=== PATIENT | male | born 1935 | race Caucasian/White ===

== ENCOUNTER 2017-10-03 11:30 | Inpatient (IN) | payer MEDICARE, BC ==
[~2017-10-03] VITALS: Ht 172.7 cm; Wt 85.4 kg
[2017-10-03] VITALS (32 sets, daily range): BP systolic 96–260; BP diastolic 55–120; PULSE 52–80; RESP 12–23; TEMP 97.8–99; O2SAT 93–100
--- NOTE | 2017-10-03 11:45 | PD ---
HPI Chief Complaint: stroke alert Time Seen by Provider: 11:35 Travel History International Travel<30 days: No Contact w/Intl Traveler<30days: No Traveled to known affect area: No History of Present Illness HPI 82-year-old male patient with history of hypertension, end-stage renal disease on dialysis last dialyzed on Saturday, presents to the ER today brought in by EMS , apparently was last seen normal about an hour prior to arrival, about at 10:15 , and notes that the patient started having difficulty talking, is having left-sided weakness in arms and legs. Patient is having difficulty giving me further history. Staring to the left. Had complained of nausea, given Zofran by EMS. Stroke alert was called in the field. Blood sugars 133. Modifying Factors: None Associated Signs & Symptoms: Stroke alert, left-sided weakness, difficulty speaking Risk Factors: Elderly, on dialysis [facility] Social History Tobacco Use: No Allergies-Medications (Allergen,Severity, Reaction): Coded Allergies: No Known Allergies (Unverified , 10/03/17) Review of Systems ROS Limitations: Altered Mental Status, Speech Impaired Physical Exam Narrative GENERAL: Well-developed elderly white male patient currently in moderate distress. Awake, mildly disoriented. SKIN: Focused skin assessment warm/dry. HEAD: Atraumatic. Normocephalic. EYES: Pupils equal and round. No scleral icterus. No injection or drainage. ENT: No nasal bleeding or discharge. Mucous membranes pink and moist. NECK: Trachea midline. No JVD. CARDIOVASCULAR: Regular rate and rhythm. No murmur appreciated. Pulses are present and equal bilaterally. RESPIRATORY: No accessory muscle use. Clear to auscultation. Breath sounds equal bilaterally. GASTROINTESTINAL: Abdomen soft, non-tender, nondistended. Hepatic and splenic margins not palpable. MUSCULOSKELETAL: No obvious deformities. No clubbing. No cyanosis. No edema. NEUROLOGICAL: Awake, disoriented. Left-sided weakness, aphasia. PSYCHIATRIC: Appropriate mood and affect; insight and judgment normal. Data Data Last Documented VS Vital Signs Date Time Temp Pulse Resp B/P (MAP) Pulse Ox O2 Delivery O2 Flow Rate FiO2 10/03/17 11:34 97.8 64 16 260/120 (166) 96 Nasal Cannula 2.00 Orders Orders Diet Npo (10/03/17 Lunch) Activity Bed Rest (10/03/17 ) Electrocardiogram (10/03/17 ) I-Stat Creatinine (10/03/17 11:35) I-Stat Profile (10/03/17 11:35) Prothrombin Time / Inr (Pt) (10/03/17 11:35) Act Partial Throm Time (Ptt) (10/03/17 11:35) Complete Blood Count With Diff (10/03/17 11:35) Fibrinogen (10/03/17 11:35) Creatine Kinase (Cpk) (10/03/17 11:35) Troponin I (10/03/17 11:35) Ua Includes Microscopic (10/03/17 11:35) Drug Screen, Random Urine (10/03/17 11:35) Type And Screen (10/03/17 11:35) Ct Brain W/O Iv Contrast(Rout) (10/03/17 ) Cta Brain W Iv Contrast W 3d (10/03/17 11:35) Cta Neck W Iv Contrast W 3d (10/03/17 11:35) Consult Neurology (10/03/17 ) Blood Glucose (10/03/17 11:35) Ecg Monitoring (10/03/17 11:35) Neuro Checks Q2HX12,Q4H (10/03/17 11:35) Nursing Bedside Swallow Assess .ONCE (10/03/17 11:35) Iv Access Insert/Monitor (10/03/17 11:35) NPO (10/03/17 11:35) Oximetry (10/03/17 11:35) Oxygen Administration (10/03/17 11:35) Resp Oxygen Teddy C Titrat 1-4 L (10/03/17 11:35) Cath For Specimen (10/03/17 11:35) (Hub Use Only)Inp Phy Cons/Ref (10/03/17 ) Fosphenytoin Inj (Cerebyx Inj) (10/03/17 12:00) Lorazepam Inj (Ativan Inj) (10/03/17 12:00) Levetiracetam Inj (Keppra Inj) (10/03/17 12:00) Ondansetron Inj (Zofran Inj) (10/03/17 12:08) Admit Order (Ed Use Only) (10/03/17 12:35) Labs Laboratory Tests Test 10/03/17 11:37 White Blood Count 10.6 TH/MM3 Red Blood Count 3.65 MIL/MM3 Hemoglobin 11.8 GM/DL Bedside Hemoglobin 11.9 G/DL Hematocrit 35.4 % Bedside Hematocrit 35.0 % Mean Corpuscular Volume 96.8 FL Mean Corpuscular Hemoglobin 32.4 PG Mean Corpuscular Hemoglobin Concent 33.4 % Red Cell Distribution Width 14.4 % Platelet Count 294 TH/MM3 Mean Platelet Volume 8.3 FL Neutrophils (%) (Auto) 61.1 % Lymphocytes (%) (Auto) 22.9 % Monocytes (%) (Auto) 10.0 % Eosinophils (%) (Auto) 5.2 % Basophils (%) (Auto) 0.8 % Neutrophils # (Auto) 6.5 TH/MM3 Lymphocytes # (Auto) 2.4 TH/MM3 Monocytes # (Auto) 1.1 TH/MM3 Eosinophils # (Auto) 0.6 TH/MM3 Basophils # (Auto) 0.1 TH/MM3 CBC Comment DIFF FINAL Differential Comment Prothrombin Time 10.9 SEC Prothromb Time International Ratio 1.1 RATIO Activated Partial Thromboplast Time 24.0 SEC Fibrinogen 395 mg/dL Bedside Sodium 136 MMOL/L Bedside Potassium 6.9 MMOL/L Bedside Chloride 105 MMOL/L Bedside Blood Urea Nitrogen 112 MG/DL Bedside Creatinine 9.1 MG/DL Bedside Glucose 132 MG/DL Total Creatine Kinase 105 U/L Troponin I LESS THAN 0.02 NG/ML MDM Medical Screen Exam Complete: Yes Emergency Medical Condition: Yes Medical Record Reviewed: Yes Differential Diagnosis Stroke alert: ICH versus CVA versus dehydration versus metabolic issues versus brain mass Narrative Course Patient was seen in the ER by Dr. Hopkins who feels that the patient is having seizures, wanted me to start the patient on Arrival and give the patient is small dose of Ativan. CT of the brain was initially unremarkable. However, due to seizures, Dr. Hopkins does not feel that he is a good TPA candidate. His lab work shows quite significant elevation of creatinine of 9, potassium 6.9 , and it is obvious the patient will need dialysis. At this point, my plan would be to admit the patient for further evaluation and treatment, and contact renal for patient to get dialysis. His last dialysis apparently was on Saturday. EKG shows narrow complex sinus bradycardia rate of 60 bpm with occasional APCs. Initial CAT scan did not show any signs of acute intracranial processes. After the Ativan, it was noted the patient was fairly disoriented, and considering his condition, and will need dialysis. An EEG was done by Dr. Hopkins which is showing abnormal waveform concerning for seizures. He states that the patient does appear to be doing well, likely will need further critical care treatment, may need BiPAP or intubation as well for airway protection. I have prepared for intubation, and at this point I have talked to Dr. Chan, of intensive care unit, she comes into see the patient, and intubate the patient. Patient's ABG shows significant acidosis with a pH of 7.14, and at this point after discussions with Dr. Chan, hyperkalemia treatment was initiated including calcium, bicarbonate, and dextrose and insulin. Case was also discussed with Dr. Gonzalez who agrees to initiate dialysis for this patient. Aggregate critical care time was 40 minutes. Time to perform other separately billable procedures was not included in the critical care time. My time did not include minutes spent treating any other patients simultaneously or on activities that did not directly contribute to the patient's treatment. The services I provided to this patient were to treat and/or prevent clinically significant deterioration that could result in: ICH, worsening renal failure, cardiopulmonary arrest, dysrhythmias, I provided critical care services requiring my management, as noted below: Chart data review, documentation time, medication orders and management, vital sign assessments/reviewing monitor data, ordering and reviewing lab tests, ordering and interpreting/reviewing x-rays and diagnostic studies, care of the patient and discussion of the patient with the admitting physicians. Stroke Alert NIHSS NIH Stroke Scale Result: 19 NIHSS Time Completed: 11:55 Thrombolytic Contraindications Contraindications: Uncontrolled HTN at event Contraindications Comment: Suspected seizure, elevated blood pressure Diagnosis Diagnosis: Primary Impression: Stroke-like symptom Additional Impressions: Chronic renal failure Hyperkalemia Admitting Physician Requests: Admit Khanh Devine MD Oct 03, 2017 11:45
--- NOTE | 2017-10-03 11:52 | RADRPT ---
EXAM DATE/TIME: 10/03/2017 11:40 [facility] COMPARISON: No previous studies available for comparison. INDICATIONS : Stroke alert, left sided flacid. RADIATION DOSE: 36.12 CTDIvol (mGy) This report was called by Dr. Joseph to Dr. Hopkins at 11: 50 AM. MEDICAL HISTORY : Non-responsive. SURGICAL HISTORY : Non-responsive. ENCOUNTER: Initial ACUITY: 1 day PAIN SCALE: Non-responsive LOCATION: cranial TECHNIQUE: Multiple contiguous axial images were obtained of the head. Using automated exposure control and adj ustment of the mA and/or kV according to patient size, radiation dose was kept as low as reasonably a chievable to obtain optimal diagnostic quality images. DICOM format image data is available electro nically for review and comparison. FINDINGS: CEREBRUM: There is mild generalized atrophy. Ventricles are normal. There is mild periventricular white matter low attenuation. There is a well-defined low-density in the right occipital lobe. No midline shift, mass lesion, hemorrhage or acute infarction. No extra-axial fluid collections are seen. POSTERIOR FOSSA: The cerebellum and brainstem demonstrate no acute finding. The 4th ventricle is midline. The cerebe llopontine angle is unremarkable. EXTRACRANIAL: Isualized sinuses are clear. SKULL: The calvaria is intact. No evidence of skull fracture. CONCLUSION: 1. 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 2. No acute intracranial abnormality is identified. Age-related changes include mild cerebral atroph y and chronic periventricular white matter change. Robby Joseph MD on October 03, 2017 at 11:46 Board Certified Radiologist. This report was verified electronically.
[2017-10-03 11:55] LABS: I-STAT POTASSIUM 6.9 MMOL/L (3.5-4.9); I-STAT SODIUM 136 MMOL/L (138-146)
[2017-10-03 11:56] LABS: AUTOMATED NEUTROPHIL # 6.5 TH/MM3 (1.8-7.7); BASOPHIL # 0.1 TH/MM3 (0-0.2); BASOPHIL % 0.8 % (0.0-2.0); EOSINOPHIL # 0.6 TH/MM3 (0-0.4); EOSINOPHIL % 5.2 % (0.0-4.0); HEMATOCRIT 35.4 % (39.0-51.0); HEMO FLAGS DIFF FINAL; LYMPH % 22.9 % (9.0-44.0); LYMPHOCYTE # 2.4 TH/MM3 (1.0-4.8); MEAN CELL VOLUME 96.8 FL (80.0-100.0); MEAN CORPUSCULAR HEMOGLOBIN 32.4 PG (27.0-34.0); MEAN CORPUSCULAR HGB CONC 33.4 % (32.0-36.0); NEUT % 61.1 % (16.0-70.0); PLATELET COUNT 294 TH/MM3 (150-450); RED BLOOD COUNT 3.65 MIL/MM3 (4.50-5.90); RED CELL DISTRIBUTION WIDTH 14.4 % (11.6-17.2); WHITE BLOOD COUNT 10.6 TH/MM3 (4.0-11.0)
[2017-10-03] MEDS ORDERED: LORazepam 2 MG/ML VIAL IV PUSH ONE (12:00)
[2017-10-03] MEDS ORDERED: FOSPHENYTOIN INJ 1,000 MGPE in SODIUM CHLORIDE 0.9% INJ 50 ML IV ONE (12:00)
[2017-10-03] MEDS ORDERED: levETIRAcetam INJ 100 ML IV ONE (12:00)
[2017-10-03 12:04] LABS: INTERNATIONAL NORMALIZED RATIO 1.1 RATIO; PROTHROMBIN TIME - PATIENT 10.9 SEC (9.8-11.6)
[2017-10-03] MEDS ORDERED: ONDANSETRON HCL 4 MG/2 ML VIAL ONE (12:08)
[2017-10-03] MEDS: LABETALOL HCL 100 MG/20 ML VIAL IV PUSH PRN (12:15)
[2017-10-03 12:18] LABS: CREATINE KINASE 105 U/L (39-308)
--- NOTE | 2017-10-03 12:24 | RADRPT ---
EXAM DATE/TIME: 10/03/2017 11:40 [facility] COMPARISON: No previous studies available for comparison. INDICATIONS : Stroke alert, left side flacid. IV CONTRAST: 50 cc Visipaque (iodixanol) IV ; Cumulative dose for multiple exams. RADIATION DOSE: 27.75 CTDIvol (mGy) ; Combined studies MEDICAL HISTORY : Non-responsive. SURGICAL HISTORY : Non-responsive. ENCOUNTER: Initial ACUITY: 1 day PAIN SCALE: Non-responsive LOCATION: cranial TECHNIQUE: Volumetric scanning was performed using a multi-row detector CT scanner. The data was post processed with a variety of visualization algorithms including full volume maximum intensity projection, multi -planar sliding thin slab reformation, curved planar reformation, and surface rendering techniques. Using automated exposure control and adjustment of the mA and/or kV according to patient size, radiat ion dose was kept as low as reasonably achievable to obtain optimal diagnostic quality images. DICO M format image data is available electronically for review and comparison. FINDINGS: There is excellent visualization of the major intracranial arteries out to the second-order branch ve ssels. There is no evidence for aneurysm, vessel truncation or stenosis, and no evidence for vascula r malformation. Anterior communicating artery seen. No thrombus or aneurysm in the middle, anterior or posterior cerv ical arteries. Vertebrobasilar junction is normal. CONCLUSION: 1. No large vessel stenosis or aneurysm. 2. No thrombus. Monroe Sidhu MD on October 03, 2017 at 12:18 Board Certified Radiologist. This report was verified electronically.
--- NOTE | 2017-10-03 12:26 | RADRPT ---
EXAM DATE/TIME: 10/03/2017 11:40 [facility] COMPARISON: No previous studies available for comparison. INDICATIONS : Stroke alert, left side flacid. IV CONTRAST: 50 cc Visipaque (iodixanol) IV ; Cumulative dose for multiple exams. RADIATION DOSE: 27.17 CTDIvol (mGy) ; Combined studies MEDICAL HISTORY : Non-responsive. SURGICAL HISTORY : Non-responsive. ENCOUNTER: Initial ACUITY: 1 day PAIN SCALE: Non-responsive LOCATION: neck Elevated flow velocities and ICA/CCA ratios have been found to correlate with increased degrees of vessel stenosis, calculated as percentage of diameter relative to a normal segment of distal ICA/CCA. TECHNIQUE: Volumetric scanning was performed using a multirow detector CT scanner. The data was post processed with a variety of visualization algorithms including full-volume maximum intensity projection, multip lanar sliding thin-slab reformation, curved-planar reformation, and surface-rendering techniques. Us ing automated exposure control and adjustment of the mA and/or kV according to patient size, radiatio n dose was kept as low as reasonably achievable to obtain optimal diagnostic quality images. DICOM f ormat image data is available electronically for review and comparison. FINDINGS: AORTIC ARCH: There is a three-vessel origin of the great vessels from the aorta. No evidence of ostial narrowing. RIGHT CAROTID: The common carotid artery is intact. The carotid bulb has a normal configuration without ulceration o r narrowing. The internal carotid artery lumen is smooth without stenosis. The external carotid popeye ry is intact. LEFT CAROTID: The common carotid artery is intact. The carotid bulb has a normal configuration without ulceration or narrowing. The internal carotid artery lumen is smooth without stenosis. The external carotid ar bobby is intact. VERTEBRALS: The vertebral arteries have a symmetric diameter. No stenotic lesions are seen. CONCLUSION: 1. Normal carotid arteries. No significant stenosis. No thrombus seen Monroe Sidhu MD on October 03, 2017 at 12:23 Board Certified Radiologist. This report was verified electronically.
[2017-10-03] MEDS ORDERED: ETOMIDATE 20 MG/10 ML VIAL IVP ONE (12:45)
[2017-10-03] MEDS ORDERED: SODIUM CHLORIDE 0.9% FLUSH 10 ML FLUSH IVF PRN (12:45)
[2017-10-03] MEDS ORDERED: VECURONIUM BROMIDE 10 MG VIAL IV PUSH ONE (12:45)
[2017-10-03] MEDS ORDERED: VALPROATE INJ 1,000 MG in SODIUM CHLORIDE 0.9% INJ 100 ML IV ONE (12:45)
--- NOTE | 2017-10-03 12:52 | MB ---
cc: BREANNA SINGH DATE OF CONSULTATION: 10/03/2017 HISTORY OF PRESENT ILLNESS This is a stroke alert on a patient who came in from the ER with new onset of left-sided weakness about 1 hour prior. MEDICATION His medicines at home: 1. Ecotrin 325 a day. 2. ___ 800. 3. Lexapro 10 a day. 4. Amlodipine 5 mg a day. 5. Lipitor 10 mg a day. 6. Metoprolol XR 25 mg a day. 7. Sensipar 30 mg twice a week. 8. Renvela 800. REVIEW OF SYSTEMS The patient denies any headache. PAST MEDICAL HISTORY Past medical history unable to obtain. He does not know his past medical history. He is on dialysis, however, we know that much. He presents with eyes jerking somewhat to the left, some weakness on the left arm and leg and some jerking movements of left arm, head to the left. PHYSICAL EXAMINATION VITAL SIGNS: O2 sat is 96%, pulse 64, afebrile, 260/120 was the blood pressure, respiratory rate of 16. He was in sinus rhythm. NECK: On exam there were no carotid bruits. HEART: Regular rhythm with a 1/6 systolic ejection murmur. NEURO: He can tell me his name and follow some commands. His visual hooper are full. Pupils are equal. The eyes and head deviated to the left and there is some nystagmus with movements of the eyes to the left. His face is symmetric. Tongue was midline. He moves his right arm and leg well and appears to have normal strength there. The left upper extremity appears to be about a 0 out of 5 to 1 out of 5, but there are some intermittent jerking movements of the left upper extremity. Left lower extremity I do not see any jerking movements there but he appears to be weak. The toes are downgoing bilaterally. DTRs are trace. LABORATORY DATA His creatinine is up, I believe it was about 9. Sodium is 135. IMAGING STUDIES CT scan of the brain shows an old right parietal infarct, large. CTA of the neck is being performed and is pending. IMPRESSION I think this may be a seizure as his head and eyes are deviated to the left and he is weak on the left and some jerking movements, and not a stroke. Will give him a little bit of IV Ativan and give him some IV Cerebyx and see if it stops his movements. Will check a stat EEG. MD REJI Mart/ROSA ISELA /11:44 AM /12:23 PM
[2017-10-03] MEDS ORDERED: DEXTROSE 50% IN WATER 50 ML VIAL(D50) IV PUSH ONE (13:00)
[2017-10-03] MEDS ORDERED: SODIUM BICARBONATE 8.4% SOLN 50 MEQ/50 ML VIAL SLOW IVP ONE (13:00)
[2017-10-03] MEDS ORDERED: INSULIN HUMAN REGULAR 1,000 UNITS/10 ML VIAL IV PUSH ONE (13:00)
[2017-10-03] MEDS ORDERED: CALCIUM GLUCONATE 10% 1 GM/10 ML VIAL SLOW IVP ONE (13:00)
[2017-10-03] MEDS ORDERED: ROCURONIUM INJ 50 MG/5 ML VIAL ONE (13:02)
[2017-10-03] MEDS ORDERED: PROPOFOL 1000 MG/100 ML INJ 100 ML ONE (13:21)
[2017-10-03] MEDS ORDERED: SODIUM CHLOR 0.9% 1000 ML INJ 1,000 ML IV PRN (13:28)
[2017-10-03] MEDS ORDERED: SODIUM CHLOR 0.9% 1000 ML INJ 1,000 ML OTHER PRN ×2 (13:28)
[2017-10-03] MEDS ORDERED: ONDANSETRON HCL 4 MG/2 ML VIAL IV PUSH PRN ×2 (13:30→18:00)
[2017-10-03] MEDS ORDERED: ACETAMINOPHEN 325 MG TAB PO PRN ×2 (13:30→18:00)
[2017-10-03] MEDS ORDERED: SODIUM CHLORIDE 0.9% FLUSH 10 ML FLUSH IV FLUSH PRN ×2 (13:30→13:45)
[2017-10-03] MEDS ORDERED: GELATIN 12 MM/7 MM FOAM TOP PRN (13:30)
[2017-10-03] MEDS ORDERED: NITROGLYCERIN 0.4 MG SL 25 TABS/BTL SL PRN (13:30)
[2017-10-03] MEDS ORDERED: GENTAMICIN SULFATE (DIALYSIS USE ONLY) 20 MG/2 ML VIAL OTHER PRN (13:30)
[2017-10-03] MEDS ORDERED: HEPARIN SODIUM - IV 10,000 UNITS/10 ML VIAL IV FLUSH PRN (13:30)
[2017-10-03] MEDS ORDERED: cloNIDine HCL 0.1 MG TAB PO PRN (13:30)
[2017-10-03] MEDS ORDERED: ALBUMIN 25% INJ 100 ML IV PRN (13:30)
[2017-10-03] MEDS ORDERED: diphenhydrAMINE HCL 25 MG CAP PO PRN (13:30)
[2017-10-03] MEDS ORDERED: MANNITOL 12.5 GM/50 ML VIAL IV PRN (13:30)
[2017-10-03] MEDS ORDERED: HEPARIN SODIUM - IV 10,000 UNITS/10 ML VIAL PRN (13:30)
[2017-10-03] MEDS ORDERED: CHLORHEXIDINE GLUCONATE 2 % 1 PACK (2 CLOTHS) TOP PRN (13:45)
[2017-10-03] MEDS ORDERED: MAGNESIUM HYDROXIDE SUSP 30 ML CUP PO PRN (13:45)
[2017-10-03] MEDS ORDERED: PROPOFOL 1000 MG/100 ML INJ 100 ML IV PRN (13:45)
[2017-10-03] MEDS ORDERED: LACTULOSE SYRUP 20 GM/30 ML CUP PO PRN (13:45)
[2017-10-03] MEDS ORDERED: MISCELLANEOUS NURSING INFORMATION XX SCH (13:45)
[2017-10-03] MEDS ORDERED: SENNOSIDES 8.6 MG TAB PO PRN (13:45)
[2017-10-03] MEDS ORDERED: BISACODYL 10 MG SUPP RECTAL PRN (13:45)
--- NOTE | 2017-10-03 14:03 | RADRPT ---
EXAM DATE/TIME: 10/03/2017 13:25 [facility] COMPARISON: No previous studies available for comparison. INDICATIONS : Evaluate ET tube placement. MEDICAL HISTORY : Unresponsive SURGICAL HISTORY : CABG. ENCOUNTER: Initial ACUITY: 1 day PAIN SCORE: Non-responsive. LOCATION: Bilateral chest FINDINGS: Portable AP view of the chest demonstrates a normal-sized cardiac silhouette in this patient post med trish sternotomy. Endotracheal tube distal tip is near the aortic knob level measuring 5.7 cm from the jose. Lungs are underinflated. There is airspace opacity in the retrocardiac region/left lower lobe . No pneumothorax is identified. Bones demonstrate no acute finding. CONCLUSION: 1. Endotracheal tube in appropriate position with tip measuring 5.7 cm from the jose. 2. Mild atelectasis versus consolidation in the left lower lobe. Robby Joseph MD on October 03, 2017 at 14:01 Board Certified Radiologist. This report was verified electronically.
[2017-10-03 14:48] LABS: BLOOD GAS BASE EXCESS -5.4 mmol/L (-2-2); BLOOD GAS CARBOXYHEMOGLOBIN 0.5 % (0-4); BLOOD GAS HCO3 22 mmol/L (22-26); BLOOD GAS METHEMOGLOBIN 0.9 % (0-2); BLOOD GAS O2 HGB SATURATION 93 % (90-100); BLOOD GAS OXYGEN CONTENT 18.7 Vol % (12.0-20.0); BLOOD GAS PCO2 69 mmHg (38-42); BLOOD GAS PO2 98 mmHG (61-120); BLOOD GAS TOTAL HGB 14.1 G/DL (12.0-16.0); CRITICAL VALUE YES
[2017-10-03 14:49] LABS: DRAW SITE RT RADIAL; LITER FLOW 2 L/M; NUMBER OF ARTERIAL PUNCTURES 1; OXYGEN DEVICE NASAL CANNULA; STAT YES; ULNAR PULSE PRESENT
[2017-10-03] MEDS ORDERED: LORazepam 2 MG/ML VIAL IV PUSH PRN (15:00)
[2017-10-03 15:06] LABS: BLOOD, URINE SMALL (NEG); GLUCOSE,URINE 300 mg/dL (NEG); KETONE, URINE NEG (NEG); NITRITE,URINE NEG (NEG); URINE COLOR LIGHT-YELLOW (YELLW/STRAW)
--- NOTE | 2017-10-03 15:06 | MB ---
cc: EKTA PEÑA MD DATE OF CONSULTATION: 10/03/2017 REASON FOR CONSULTATION End-stage renal disease on hemodialysis, came with hyperkalemia. HISTORY OF PRESENT ILLNESS This is a 82-year-old male with past medical history of hypertension, history of chronic anemia, end-stage renal disease on hemodialysis for the last 2 years, was brought to the hospital with altered level of consciousness and possible stroke alert. I was called to see the patient because of very high potassium and high BUN and creatinine. The patient has been on hemodialysis for the last 2 years, according to the , he has been getting dialysis Mondays and Fridays. He is visiting here and supposed to be here for 2 weeks and he came here last weekend and had dialysis at [facility] on Saturday and supposed to get dialysis tomorrow. He has left arm AV fistula. The patient this morning became unresponsive and was brought in here and he had a very high blood pressure on arrival, initially had difficulty talking and has some left-sided weakness and was complaining of nausea. When I saw him at that time he already had been intubated and sedated. Patient has some seizure activity in the EEG and now going to MRI. His potassium was 6.9 and he received insulin, sodium bicarb and calcium gluconate. Most of the history was taken from the patient's chart and some from the patient's who is at the bedside. PAST MEDICAL HISTORY 1. Hypertension. 2. Chronic anemia. 3. End-stage renal disease on hemodialysis. PAST SURGICAL HISTORY Left arm AV fistula surgery. REVIEW OF SYSTEMS Review of systems cannot be taken since the patient is intubated. SOCIAL HISTORY The patient is . Other history is not available. FAMILY HISTORY Family history is also not available. ALLERGIES He has NO KNOWN DRUG ALLERGIES. MEDICATIONS Currently he is on: 1. Levetiracetam 500 mg IV daily. 2. Valproate 1000 mg one dose was given. 3. He was also given calcium gluconate. 4. Sodium bicarbonate. 5. Fosphenytoin. 6. Insulin. 7. Dextrose. PHYSICAL EXAMINATION GENERAL: On examination the patient is intubated and on sedation. VITAL SIGNS: His last blood pressure is 260/120, temperature is 97.8, oxygen saturation on 2 liters nasal cannula 96%. HEENT: Pupils are mid constricted. Nonicteric sclerae. Conjunctivae pale. NECK: Supple. JVD is not elevated. LUNGS: The patient has bilateral good air entry with occasional wheezing. HEART: S1, S2, regular rhythm. ABDOMEN: Abdomen is soft, lax. There is no tenderness. Bowel sounds positive. EXTREMITIES: There is no pedal edema. INVESTIGATIONS WBC count is 10.6, hemoglobin 11.8, platelet count of 294, neutrophils 61.1%, eosinophil 5.2%, sodium 136, potassium 6.9, chloride 105, bicarb is not done. BUN is 112, creatinine is 9.1, glucose 132, INR is 1.1. IMAGING STUDIES The patient had CT scan of the brain done which shows that he has chronic infarction involving the right occipital lobe, no acute intracranial abnormality, there is chronic periventricular white matter changes. CT scan of the head was done which shows no large vessel stenosis or aneurysm, no thrombus. CT of the neck was done which shows normal carotid arteries. ASSESSMENT/PLAN 1. Altered mental status, possibility of acute seizure. 2. Hypertension, uncontrolled. 3. Hyperkalemia. 4. Metabolic acidosis. 5. Respiratory failure. 6. Mild anemia. The patient has been on hemodialysis two times per week and his BUN, creatinine is elevated, potassium is high. He received treatment for the potassium, now he is going for MRI, seen by the neurology. Most likely he has seizure given the antiepileptic medications. The patient needs to start on dialysis. The blood pressure is still on the higher side. I already called the dialysis and will dialyze with lower potassium and follow the labs and dialysis to continue as needed. Thank you for the consultation. I will follow the patient while he is in the hospital. MD SANGITA Wyman/TLL /1:22 PM /2:36 PM
[2017-10-03] MEDS: hydrALAZINE HCL 20 MG/ML VIAL IV PUSH PRN (15:33)
--- NOTE | 2017-10-03 15:33 | RADRPT ---
EXAM DATE/TIME: 10/03/2017 14:43 [facility] COMPARISON: No previous studies available for comparison. INDICATIONS : CVA. Left sided weakness and gaze. MEDICAL HISTORY : Hypertension. Carcinoma, prostate. Renal failure, chronic. Renal cancer. SURGICAL HISTORY : CABG Nephrectomy and TURP. ENCOUNTER: Initial ACUITY: 1 day PAIN SCORE: 0/10 LOCATION: Head. TECHNIQUE: Multiplanar, multisequence MRI of the brain was performed without contrast. FINDINGS: MRI of the brain is performed in sagittal, axial and coronal planes. The craniocervical junction and midline structures are unremarkable. Diffusion weighted images demonstrate no abnormality. There is n o evidence of acute cortical infarction, acute hemorrhage, mass effect or midline shift is seen. Old right occipital infarct is present. Susceptibility weighted imaging demonstrates multiple punctate ar eas of characteristic of old hemorrhage in the deep white matter which may reflect amyloid angiopathy . Posterior fossa structures are unremarkable. CONCLUSION: 1. No evidence of acute intracranial pathology. No masses are identified. 2. 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 Tyrone Bailey MD on October 03, 2017 at 15:26 Board Certified Radiologist. This report was verified electronically.
[2017-10-03] MEDS ORDERED: CINA30 PO (15:37)
[2017-10-03] MEDS ORDERED: ASPI-146 PO (15:37)
[2017-10-03] MEDS ORDERED: LEXA10TA PO (15:37)
[2017-10-03] MEDS ORDERED: DIALCAP PO (15:37)
[2017-10-03] MEDS ORDERED: ATOR10TA15 PO (15:37)
[2017-10-03] MEDS ORDERED: METO1TAB42 PO (15:37)
[2017-10-03] MEDS ORDERED: AMLO5TAB2 PO (15:37)
[2017-10-03] MEDS ORDERED: SEVEL800 PO (15:37)
[2017-10-03] MEDS: RESP: ALBUTEROL 2.5 MG/IPRATROPIUM 0.5 MG NEB (SCH) INH ×2 (16:00→21:03)
[2017-10-03] MEDS ORDERED: RESP: IPRATROPIUM 0.5 MG/2.5 ML NEB INH PRN (16:00)
--- NOTE | 2017-10-03 16:40 | HHI.HP ---
[facility] Service Critical Care Medicine Primary Care Physician Non-Staff Admission Diagnosis stroke alert/seizures/acute renal failure/hyperkalemia Diagnosis: Travel History International Travel<30 Days: No Contact w/Intl Traveler <30 Da: No Traveled to Known Affected Are: No History of Present Illness This is a 82-year-old male , presented to the ED with altered mental status. Per report the patient was noted to have left-sided weakness, aphasia and disorientation and nausea and vomiting.Reported NIHSS scale 19 initially called as a stroke alert .The patient was evaluated by Dr. Hopkins and assessed ,the patient was notably having active seizures, not a stroke. The patient was giving a dose of Ativan secondary to active seizures ,EEG was in progress with noted seizure activity . Upon my arrival to ED, I observed the patient obtunded which required emergent intubation, which I performed . Laboratory and imaging studies were performed ,he was noted to have a potassium level of 6.9. I administered 2 g of calcium gluconate, 10 units regular insulin and D50, as well as 2 Amps of sodium bicarbonate. He was also noted to be significantly hypertensive, upon my arrival SBP 240's.IV antihypertensive medication initiated. Nephrology was consulted. The patient's medical history significant for ESRD approximately 2 years, and he received dialysis 2 times a week, last dialysis was Saturday09/30/17.The patient's medical history is also significant for hypertension, prostate cancer, and a history of renal carcinoma status post left nephrectomy and partial right nephrectomy. Critical care medicine was consulted for management. Modifying Factors: None Associated Signs & Symptoms: Stroke alert, left-sided weakness, difficulty speaking Risk Factors: Elderly, on dialysis History PFSH Social History Tobacco Use: No Allergies-Medications Allergies-Medications (Allergen,Severity, Reaction): Coded Allergies: No Known Allergies (Unverified , 10/03/17) ROS Review of Systems ROS Limitations: Altered Mental Status, Speech Impaired Review of Systems ROS Limitations: Clinical Condition Past Family Social History Allergies: Coded Allergies: No Known Allergies (Unverified , 10/03/17) Past Medical History Renal carcinoma, prostate carcinoma, ESRD, HTN Past Surgical History Left nephrectomy, right partial nephrectomy, 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 Reported Medications Reviewed Active Ordered Medications see MAR Family History unable to obtain secondary to clinical condition Social History Unable to obtain secondary to clinical condition Physical Exam Vital Signs Vital Signs Date Time Temp Pulse Resp B/P (MAP) Pulse Ox O2 Delivery O2 Flow Rate FiO2 10/03/17 15:13 100 100 10/03/17 13:12 80 23 202/85 (124) 100 Ventilator 100 10/03/17 13:10 100 100 10/03/17 13:09 78 13 189/81 (117) 93 Nasal Cannula 2.00 10/03/17 13:06 68 20 214/90 (131) 99 Nasal Cannula 2.00 10/03/17 13:03 66 23 197/93 (127) 99 Nasal Cannula 2.00 10/03/17 12:57 60 12 191/86 (121) 95 Nasal Cannula 2.00 10/03/17 12:54 62 13 184/86 (118) 96 Nasal Cannula 2.00 10/03/17 12:45 64 14 189/89 (122) 96 Nasal Cannula 2.00 10/03/17 12:30 65 14 204/93 (130) 96 Nasal Cannula 2.00 10/03/17 12:16 65 18 193/91 (125) 94 Nasal Cannula 2.00 10/03/17 12:05 69 17 225/105 (145) 94 Nasal Cannula 2.00 10/03/17 12:01 75 19 227/99 (141) 96 Nasal Cannula 2.00 10/03/17 11:50 72 17 216/98 (137) 97 Nasal Cannula 2.00 10/03/17 11:34 97.8 64 16 260/120 (166) 96 Nasal Cannula 2.00 10/03/17 11:33 96 Nasal Cannula 2.00 Physical Exam GENERAL: Critically ill-appearing elderly gentleman, nonresponsive, with shallow respirations with active seizure SKIN: Warm and dry. HEAD: Atraumatic. Normocephalic. EYES: Pupils equal and round. No scleral icterus. No injection or drainage. ENT: No nasal bleeding or discharge. Mucous membranes pink and moist. NECK: Trachea midline. No JVD. CARDIOVASCULAR: Normal rate, regular rhythm. RESPIRATORY: No accessory muscle use. Clear to auscultation. Breath sounds equal bilaterally. GASTROINTESTINAL: Abdomen soft, non-tender, nondistended. No guarding. MUSCULOSKELETAL: Extremities without clubbing, cyanosis, or edema. No obvious deformities. NEUROLOGICAL: GCS 6. Somnolent.Unresponsive, not following commands Laboratory Laboratory Tests Test 10/03/17 11:37 10/03/17 12:34 10/03/17 14:00 White Blood Count 10.6 Red Blood Count 3.65 Hemoglobin 11.8 Bedside Hemoglobin 11.9 Hematocrit 35.4 Bedside Hematocrit 35.0 Mean Corpuscular Volume 96.8 Mean Corpuscular Hemoglobin 32.4 Mean Corpuscular Hemoglobin Concent 33.4 Red Cell Distribution Width 14.4 Platelet Count 294 Mean Platelet Volume 8.3 Neutrophils (%) (Auto) 61.1 Lymphocytes (%) (Auto) 22.9 Monocytes (%) (Auto) 10.0 Eosinophils (%) (Auto) 5.2 Basophils (%) (Auto) 0.8 Neutrophils # (Auto) 6.5 Lymphocytes # (Auto) 2.4 Monocytes # (Auto) 1.1 Eosinophils # (Auto) 0.6 Basophils # (Auto) 0.1 CBC Comment DIFF FINAL Differential Comment Prothrombin Time 10.9 Prothromb Time International Ratio 1.1 Activated Partial Thromboplast Time 24.0 Fibrinogen 395 Bedside Sodium 136 Bedside Potassium 6.9 Bedside Chloride 105 Bedside Blood Urea Nitrogen 112 Bedside Creatinine 9.1 Bedside Glucose 132 Total Creatine Kinase 105 Troponin I LESS THAN 0.02 Blood Gas Puncture Site RT RADIAL Blood Gas Patient Temperature 37.0 Blood Gas HCO3 22 Blood Gas Base Excess -5.4 Blood Gas Oxygen Saturation 93 Arterial Blood pH 7.14 Arterial Blood Partial Pressure CO2 69 Arterial Blood Partial Pressure O2 98 Arterial Blood Oxygen Content 18.7 Arterial Blood Carboxyhemoglobin 0.5 Arterial Blood Methemoglobin 0.9 Blood Gas Hemoglobin 14.1 Oxygen Delivery Device NASAL CANNULA Blood Gas Liter Flow 2 Urine Color LIGHT-YELLOW Urine Turbidity CLEAR Urine pH 8.0 Urine Specific Bussey 1.011 Urine Protein 300 Urine Glucose (UA) 300 Urine Ketones NEG Urine Occult Blood SMALL Urine Nitrite NEG Urine Bilirubin NEG Urine Urobilinogen LESS THAN 2.0 Urine Leukocyte Esterase NEG Urine RBC LESS THAN 1 Urine WBC 1 Urine Opiates Screen NEG Urine Barbiturates Screen NEG Urine Amphetamines Screen NEG Urine Benzodiazepines Screen NEG Urine Cocaine Screen NEG Urine Cannabinoids Screen NEG Result Diagram: 10/03/17 1137 Imaging Last Impressions Neck CTA 10/03/17 113 Signed Impressions: Service Date/Time: September 11:40 - CONCLUSION: 1. Normal carotid arteries. No significant stenosis. No thrombus seen Monroe Sidhu MD Head CTA 10/03/17 1135 Signed Impressions: Service Date/Time: September 11:40 - CONCLUSION: 1. No large vessel stenosis or aneurysm. 2. No thrombus. Monroe Sidhu MD Head CT 10/03/17 0000 Signed Impressions: Service Date/Time: September 11:40 - CONCLUSION: 1. 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 2. No acute intracranial abnormality is identified. Age-related changes include mild cerebral atrophy and chronic periventricular white matter change. Robby Joseph MD Chest X-Ray 10/03/17 0000 Signed Impressions: Service Date/Time: September 13:25 - CONCLUSION: 1. Endotracheal tube in appropriate position with tip measuring 5.7 cm from the jose. 2. Mild atelectasis versus consolidation in the left lower lobe. Robby Joseph MD Brain MRI 10/03/17 0000 Signed Impressions: Service Date/Time: September 14:43 - CONCLUSION: 1. No evidence of acute intracranial pathology. No masses are identified. 2. 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 Tyrone Bailey MD Septic Shock Reassessment Heart: Regular rate and rhythm Lungs: Clear Skin: Warm Peripheral Pulses: Bounding Right Radial Bounding Left Radial Capillary Refill: Brisk Caprini VTE Risk Assessment Caprini VTE Risk Assessment: Mod/High Risk (score >= 2) Caprini Risk Assessment Model Point Value = 1 Point Value = 2 Point Value = 3 Point Value = 5 Age 41-60 Minor surgery BMI > 25 kg/m2 Swollen legs Varicose veins or History of unexplained or recurrent spontaneous Oral contraceptives or hormone replacement Sepsis (< 1 month) Serious lung disease, including pneumonia (< 1 month) Abnormal pulmonary function Acute myocardial infarction Congestive heart failure (< 1 month) History of inflammatory bowel disease Medical patient at bed rest Age 61-74 Arthroscopic surgery Major open surgery (> 45 min) Laparoscopic surgery (> 45 min) Malignancy Confined to bed (> 72 hours) Immobilizing plaster cast Central venous access Age >= 75 History of VTE Family history of VTE Factor V Leiden Prothrombin [id number] Lupus anticoagulant Anticardiolipin antibodies Elevated serum homocysteine Heparin-induced thrombocytopenia Other congenital or acquired thrombophilia Stroke (< 1 month) Elective arthroplasty Hip, pelvis, or leg fracture Acute spinal cord injury (< 1 month) Prophylaxis Regimen Total Risk Factor Score Risk Level Prophylaxis Regimen 0-1 Low Early ambulation 2 Moderate Order ONE of the following: *Sequential Compression Device (SCD) *Heparin 5000 units SQ BID 3-4 Higher Order ONE of the following medications: *Heparin 5000 units SQ TID *Enoxaparin/Lovenox 40 mg SQ daily (WT < 150 kg, CrCl > 30 mL/min) *Enoxaparin/Lovenox 30 mg SQ daily (WT < 150 kg, CrCl > 10-29 mL/min) *Enoxaparin/Lovenox 30 mg SQ BID (WT < 150 kg, CrCl > 30 mL/min) AND/OR *Sequential Compression Device (SCD) 5 or more Highest Order ONE of the following medications: *Heparin 5000 units SQ TID (Preferred with Epidurals) *Enoxaparin/Lovenox 40 mg SQ daily (WT < 150 kg, CrCl > 30 mL/min) *Enoxaparin/Lovenox 30 mg SQ daily (WT < 150 kg, CrCl > 10-29 mL/min) *Enoxaparin/Lovenox 30 mg SQ BID (WT < 150 kg, CrCl > 30 mL/min) AND *Sequential Compression Device (SCD) Assessment and Plan Assessment and Plan This is a 82-year-old critically ill-appearing gentleman with multiple chronic comorbidities. Presented with new onset seizures, in the setting of metabolic encephalopathy, and significant hyperkalemia. Discussion with and family, requests aggressive measures be continued. Plans for immediate hemodialysis, patient emergently intubated for airway protection, in the setting of persistent seizure activity. Admit to ICU. Plan by systems: Neurologic: New onset seizures Metabolic encephalopathy Neurochecks per ICU protocol 10/03 CT brain-chronic infarct right occipital lobe 10/03 CTA head -no stenosis, no thrombus 10/03 CTA neck-no stenosis no thrombus carotids patent Preliminary EEG-ongoing seizure activity Patient received Keppra 1 g in ED Neurology following-Dr. Hopkins. Antiepileptic drug management per neurology Sherif Cedeno Obtain ammonia level, TSH Respiratory: Acute hypoxemic respiratory failure 10/03-intubated for airway protection Ventilator bundle Maintain O2 sat greater than 92% wean FiO2 as tolerated Duo nebs every 6 hours scheduled every 2 hours when necessary CPAP trials when clinically indicated Cardiovascular: Hypertensive crisis Obtain map greater than 65 Labetalol 10 mg every 4 hours PRN, hydralazine 20 mg PRN Resume patient's home antihypertensive meds after placement of OGT Renal: ESRD Hemodialysis -- Strict I/Os FEN/GI: Metabolic derangement 10/03 Potassium level 6.9-rec'd 10u Reg insulin, D50, Calcium gluconate 2 g, sodium bicarbonate1 amp Nephrology consulted-Dr. Gonzalez hemodialysis initiated Place OGT to LIWS Heme/ID: Leukocytosis Monitor CBC Obtain blood urine and sputum culture Endocrine: Hyperglycemia of critical illness Glucose monitoring ICU protocol -- SSI Prophylaxis: GI Prophylaxis famotidine DVT Prophylaxis -- SCDs 5000 Heparin twice a day Lines: IVs providing adequate access. Central line if indicated Dispo: This patient remains critically ill with one or more organ systems which are or may become a threat to life. I have spent in excess of 61 minutes discontinuously in the care and management of this patient. This time is exclusive of procedures, and includes, but is not limited to, evaluation of the patient, review of the medical record, discussions with family, consultants, nursing staff, or respiratory therapy, and documentation in the medical record. Code Status Full Discussed Condition With Dr. Quinteros, Dr. Hopkins, Dr.. Gonzalez , patient's and ED RN at bedside. Tracy Chan MD Oct 03, 2017 16:40
--- NOTE | 2017-10-03 16:42 | PD.PROCEDR ---
Procedure Note Procedure Endotracheal Intubation Diagnosis: Acute hypoxemic respiratory failure Indications: Same Consent: Emergent () Anesthesia: see MAR Description of the Procedure: The patient was positioned in the sniffing position. Pre-oxygenation was performed using a BVM 100% Anesthesia was induced via rapid sequence. A C MAC 4 was used for laryngoscopy and a Grade 1 view was obtained. A 8.0 cuffed endotracheal tube was inserted atraumatically through the vocal cords. Confirmation of correct endotracheal tube placement was made by equal and bilateral breath sounds and colorimetric CO2 detection. The endotracheal tube was secured at 23 cm at the teeth. There were no immediate complications noted. The patient remained hemodynamically stable throughout the procedure. A chest x-ray has been ordered. I personally performed the procedure. Tracy Chan MD Oct 03, 2017 16:42
[2017-10-03 17:00] LABS: FREE T4 0.89 NG/DL (0.76-1.46)
--- NOTE | 2017-10-03 17:02 | EKG ---
Date Performed: 10/03/2017 Time Performed: 12:20:21 PTAGE: 82 years EKG: Baseline artifact present Normal Sinus rhythm with Premature atrial contraction MARKED LEFT AXIS DEVIATION ABNORMAL ECG NO PREVIOUS TRACING DOCTOR: German Dow Interpretating Date/Time 10/03/2017 17:01:50
[2017-10-03] MEDS: EPOETIN ALFA 10,000 UNITS/ML VIAL IV PUSH PRN (17:21)
[2017-10-03] MEDS: ARTIFICIAL TEARS OPTH SOLN 15 ML BTL EACH EYE SCH (18:00)
[2017-10-03] MEDS ORDERED: fentaNYL 2,500 MCG/NS 250 ML IV PRN (19:00)
[2017-10-03] MEDS ORDERED: SODIUM CHLOR 0.9% 1000 ML INJ 1,000 ML IV SCH (19:00)
[2017-10-03 19:30] LABS: BLOOD GAS BASE EXCESS -1.5 mmol/L (-2-2); BLOOD GAS CARBOXYHEMOGLOBIN 0.3 % (0-4); BLOOD GAS HCO3 23 mmol/L (22-26); BLOOD GAS METHEMOGLOBIN 1.6 % (0-2); BLOOD GAS O2 HGB SATURATION 98 % (90-100); BLOOD GAS OXYGEN CONTENT 17.3 Vol % (12.0-20.0); BLOOD GAS PCO2 42 mmHg (38-42); BLOOD GAS PO2 465 mmHg (61-120); BLOOD GAS TOTAL HGB 11.7 G/DL (12.0-16.0); CRITICAL VALUE NO; OXYGEN DEVICE VENT; TEMP CORR TO 98.6; VENT SETTINGS SEE COMMENTS
[2017-10-03 19:31] LABS: DRAW SITE RT RADIAL; FIO2 100 %; NUMBER OF ARTERIAL PUNCTURES 1; STAT NO; ULNAR PULSE PRESENT
[2017-10-03] MEDS: FAMOTIDINE 20 MG/2 ML VIAL IV PUSH SCH (20:10)
[2017-10-03] MEDS: SODIUM CHLORIDE 0.9% FLUSH 10 ML FLUSH IV FLUSH SCH (20:10)
[2017-10-03] MEDS: DOCUSATE SODIUM 50 MG/SENNA 8.6 MG TAB PO SCH (20:10)
[2017-10-03] MEDS: CHLORHEXIDINE 0.12% (ORAL KIT) 15 ML CUP MT SCH (20:11)
[2017-10-04] VITALS (18 sets, daily range): BP systolic 138–204; BP diastolic 63–86; PULSE 57–101; RESP 16–34; TEMP 98.2–99.2; O2SAT 97–100
[2017-10-04] MEDS: CHLORHEXIDINE GLUCONATE 2 % 1 PACK (2 CLOTHS) TOP SCH (04:00)
[2017-10-04] MEDS: RESP: ALBUTEROL 2.5 MG/IPRATROPIUM 0.5 MG NEB (SCH) INH ×4 (04:25→19:59)
[2017-10-04 05:17] LABS: BLOOD GAS BASE EXCESS -1.1 mmol/L (-2-2); BLOOD GAS CARBOXYHEMOGLOBIN 0.6 % (0-4); BLOOD GAS HCO3 24 mmol/L (22-26); BLOOD GAS METHEMOGLOBIN 1.5 % (0-2); BLOOD GAS O2 HGB SATURATION 97 % (90-100); BLOOD GAS OXYGEN CONTENT 17.3 Vol % (12.0-20.0); BLOOD GAS PCO2 43 mmHg (38-42); BLOOD GAS PO2 151 mmHg (61-120); BLOOD GAS TOTAL HGB 12.5 G/DL (12.0-16.0); TEMP CORR TO 98.6
[2017-10-04 05:18] LABS: CRITICAL VALUE NO; DRAW SITE RT RADIAL; FIO2 40 %; NUMBER OF ARTERIAL PUNCTURES 1; OXYGEN DEVICE VENT; STAT NO; ULNAR PULSE PRESENT; VENT SETTINGS SEE COMMENTS
[2017-10-04] MEDS: levETIRAcetam INJ 500 MG in SODIUM CHLORIDE 0.9% INJ 100 ML IV SCH (05:22)
--- NOTE | 2017-10-04 06:34 | RADRPT ---
EXAM DATE/TIME: 10/04/2017 04:56 [facility] COMPARISON: CHEST SINGLE AP, October 03, 2017, 13:25. INDICATIONS : Respiratory failure post STROKE Alert MEDICAL HISTORY : SURGICAL HISTORY : CABG. ENCOUNTER: Subsequent ACUITY: 2 days PAIN SCORE: Non-responsive. LOCATION: Bilateral chest FINDINGS: Median sternotomy wires are noted. Lungs are clear. Endotracheal tube in satisfactory position. Cardi omegaly. CONCLUSION: No significant change has occurred. Rui Pinto MD on October 04, 2017 at 6:32 Board Certified Radiologist. This report was verified electronically.
[2017-10-04 06:53] LABS: AUTOMATED NEUTROPHIL # 8.3 TH/MM3 (1.8-7.7); BASOPHIL % 0.4 % (0.0-2.0); EOSINOPHIL # 0.1 TH/MM3 (0-0.4); EOSINOPHIL % 0.8 % (0.0-4.0); HEMATOCRIT 33.3 % (39.0-51.0); HEMO FLAGS DIFF FINAL; LYMPH % 10.7 % (9.0-44.0); LYMPHOCYTE # 1.2 TH/MM3 (1.0-4.8); MEAN CELL VOLUME 97.4 FL (80.0-100.0); MEAN CORPUSCULAR HEMOGLOBIN 33.3 PG (27.0-34.0); MEAN CORPUSCULAR HGB CONC 34.2 % (32.0-36.0); MONO % 12.9 % (0.0-8.0); NEUT % 75.2 % (16.0-70.0); PLATELET COUNT 232 TH/MM3 (150-450); RED BLOOD COUNT 3.42 MIL/MM3 (4.50-5.90); RED CELL DISTRIBUTION WIDTH 14.4 % (11.6-17.2)
[2017-10-04 07:15] LABS: ANION GAP 12 MEQ/L (5-15); AST (GOT) 22 U/L (15-37); BICARBONATE 24.6 MEQ/L (21.0-32.0); BLOOD UREA NITROGEN 60 MG/DL (7-18); CHLORIDE 100 MEQ/L (98-107); GLOMERULAR FILTRATION RATE 7 ML/MIN (>89); POTASSIUM 5.1 MEQ/L (3.5-5.1); SODIUM (NA) 137 MEQ/L (136-145)
[2017-10-04 07:19] LABS: ALKALINE PHOSPHATASE 88 U/L (45-117); ALT (GPT) 30 U/L (12-78); TOTAL BILIRUBIN ADULT 0.3 MG/DL (0.2-1.0)
--- NOTE | 2017-10-04 07:54 | HHI.PR ---
Subjective Remarks on vent no sz overnoc Objective Vital Signs Date Time Temp Pulse Resp B/P (MAP) Pulse Ox O2 Delivery O2 Flow Rate FiO2 10/04/17 07:16 99 40 10/04/17 06:00 57 10/04/17 04:26 100 40 10/04/17 04:00 99.2 60 16 144/68 (93) 100 10/04/17 04:00 40 10/04/17 04:00 60 10/04/17 02:11 40 10/04/17 02:05 100 40 10/04/17 02:00 58 10/04/17 00:00 50 10/04/17 00:00 61 10/04/17 00:00 99.2 61 16 138/67 (90) 100 10/03/17 22:00 67 10/03/17 21:03 100 50 10/03/17 20:00 71 10/03/17 20:00 98.9 71 16 96/55 (69) 100 10/03/17 20:00 50 10/03/17 18:00 72 10/03/17 16:16 100 100 10/03/17 16:00 69 10/03/17 16:00 99.0 69 21 179/79 (112) 100 10/03/17 15:13 100 100 10/03/17 14:13 52 16 156/69 (98) 100 Ventilator 10/03/17 13:58 54 16 162/69 (100) 100 Ventilator 10/03/17 13:43 56 16 166/71 (102) 100 Ventilator 10/03/17 13:41 55 16 168/71 (103) 100 Ventilator 10/03/17 13:36 59 16 188/79 (115) 100 Ventilator 10/03/17 13:33 61 16 170/77 (108) 100 Ventilator 10/03/17 13:27 65 16 180/79 (112) 100 Ventilator 10/03/17 13:24 62 16 186/80 (115) 100 Ventilator 10/03/17 13:21 63 16 174/78 (110) 100 Ventilator 10/03/17 13:18 68 16 185/81 (115) 100 Ventilator 10/03/17 13:15 70 16 193/81 (118) 100 Ventilator 10/03/17 13:12 80 23 202/85 (124) 100 Ventilator 100 10/03/17 13:10 100 100 10/03/17 13:09 78 13 189/81 (117) 93 Nasal Cannula 2.00 10/03/17 13:06 68 20 214/90 (131) 99 Nasal Cannula 2.00 10/03/17 13:03 66 23 197/93 (127) 99 Nasal Cannula 2.00 10/03/17 12:57 60 12 191/86 (121) 95 Nasal Cannula 2.00 10/03/17 12:54 62 13 184/86 (118) 96 Nasal Cannula 2.00 10/03/17 12:45 64 14 189/89 (122) 96 Nasal Cannula 2.00 10/03/17 12:30 65 14 204/93 (130) 96 Nasal Cannula 2.00 10/03/17 12:16 65 18 193/91 (125) 94 Nasal Cannula 2.00 10/03/17 12:05 69 17 225/105 (145) 94 Nasal Cannula 2.00 10/03/17 12:01 75 19 227/99 (141) 96 Nasal Cannula 2.00 10/03/17 11:50 72 17 216/98 (137) 97 Nasal Cannula 2.00 10/03/17 11:34 97.8 64 16 260/120 (166) 96 Nasal Cannula 2.00 10/03/17 11:33 96 Nasal Cannula 2.00 I/O 10/03/17 10/03/17 10/03/17 10/04/17 10/04/17 10/04/17 07:00 15:00 23:00 07:00 15:00 23:00 Intake Total 675 ml Output Total 1950 ml 100 ml Balance -1950 ml 575 ml Intake IV Total 675 ml Output Urine Total 450 ml 100 ml Hemodialysis 1500 ml # Bowel Movements 0 Result Diagram: 10/04/1740 10/04/17 0540 Objective Remarks on vent and fentanyl toes up bilat now not follow commands sedated Assessment and Plan Assessment and Plan imp sz from old r cva mri neg any new cva eeg nl this am on fent adn running off it now cont iv vpa check level am also on keppra should do well neurowise and ok to get of vent concepcion eeg yest showed r sz focus Tyrone Hopkins MD Oct 04, 2017 07:54
[2017-10-04] MEDS: CHLORHEXIDINE 0.12% (ORAL KIT) 15 ML CUP MT SCH ×2 (08:00→20:00)
--- NOTE | 2017-10-04 08:53 | HHI.CCPN ---
Subjective Remarks/Hospital Course This is a 82-year-old male , presented to the ED with altered mental status. Per report the patient was noted to have left-sided weakness, aphasia and disorientation and nausea and vomiting.Reported NIHSS scale 19 initially called as a stroke alert .The patient was evaluated by Dr. Hopkins and assessed ,the patient was notably having active seizures, not a stroke. The patient was giving a dose of Ativan secondary to active seizures ,EEG was in progress with noted seizure activity . Upon my arrival to ED, I observed the patient obtunded which required emergent intubation, which I performed . Laboratory and imaging studies were performed ,he was noted to have a potassium level of 6.9. I administered 2 g of calcium gluconate, 10 units regular insulin and D50, as well as 2 Amps of sodium bicarbonate. He was also noted to be significantly hypertensive, upon my arrival SBP 240's.IV antihypertensive medication initiated. Nephrology was consulted. The patient's medical history significant for ESRD approximately 2 years, and he received dialysis 2 times a week, last dialysis was Saturday09/30/17.The patient's medical history is also significant for hypertension, prostate cancer, and a history of renal carcinoma status post left nephrectomy and partial right nephrectomy. Critical care medicine was consulted for management. Subjective: 10/04: Patient was dialyzed last night potassium level this a.m. 5.1. Continuous EEG monitoring in progress. The patient continues on Vimpat and Keppra per neurology management. Plans for CPAP trials with plan for possible extubation today. Objective Vital Signs Date Time Temp Pulse Resp B/P (MAP) Pulse Ox O2 Delivery O2 Flow Rate FiO2 10/04/17 07:16 99 40 10/04/17 06:00 57 10/04/17 04:00 99.2 16 144/68 (93) 10/03/17 14:13 Ventilator 10/03/17 13:09 2.00 Intake and Output 10/04/17 10/04/17 10/05/17 08:00 16:00 00:00 Intake Total 675 ml Output Total 100 ml Balance 575 ml Result Diagram: 10/04/17 0540 10/04/17 0540 Other Results Laboratory Tests Test 10/03/17 12:34 10/03/17 19:19 10/04/17 05:08 Blood Gas Puncture Site RT RADIAL RT RADIAL RT RADIAL Blood Gas Patient Temperature 37.0 98.6 98.6 Blood Gas HCO3 22 mmol/L (22-26) 23 mmol/L (22-26) 24 mmol/L (22-26) Blood Gas Base Excess -5.4 mmol/L (-2-2) -1.5 mmol/L (-2-2) -1.1 mmol/L (-2-2) Blood Gas Oxygen Saturation 93 % (90-100) 98 % (90-100) 97 % (90-100) Arterial Blood pH 7.14 (7.380-7.420) 7.36 (7.380-7.420) 7.36 (7.380-7.420) Arterial Blood Partial Pressure CO2 69 mmHg (38-42) 42 mmHg (38-42) 43 mmHg (38-42) Arterial Blood Partial Pressure O2 98 mmHG (61-120) 465 mmHg (61-120) 151 mmHg (61-120) Arterial Blood Oxygen Content 18.7 Vol % (12.0-20.0) 17.3 Vol % (12.0-20.0) 17.3 Vol % (12.0-20.0) Arterial Blood Carboxyhemoglobin 0.5 % (0-4) 0.3 % (0-4) 0.6 % (0-4) Arterial Blood Methemoglobin 0.9 % (0-2) 1.6 % (0-2) 1.5 % (0-2) Blood Gas Hemoglobin 14.1 G/DL (12.0-16.0) 11.7 G/DL (12.0-16.0) 12.5 G/DL (12.0-16.0) Oxygen Delivery Device NASAL CANNULA VENT VENT Blood Gas Liter Flow 2 L/M Blood Gas Ventilator Setting SEE COMMENTS SEE COMMENTS Blood Gas Inspired Oxygen 100 % 40 % Imaging Last Impressions Neck CTA 10/03/17 113 Signed Impressions: Service Date/Time: September 11:40 - CONCLUSION: 1. Normal carotid arteries. No significant stenosis. No thrombus seen Monroe Sidhu MD Head CTA 10/03/17 1135 Signed Impressions: Service Date/Time: September 11:40 - CONCLUSION: 1. No large vessel stenosis or aneurysm. 2. No thrombus. Monroe Sidhu MD Head CT 10/03/17 0000 Signed Impressions: Service Date/Time: September 11:40 - CONCLUSION: 1. 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 2. No acute intracranial abnormality is identified. Age-related changes include mild cerebral atrophy and chronic periventricular white matter change. Robby Joseph MD Chest X-Ray 10/03/17 0000 Signed Impressions: Service Date/Time: September 13:25 - CONCLUSION: 1. Endotracheal tube in appropriate position with tip measuring 5.7 cm from the jose. 2. Mild atelectasis versus consolidation in the left lower lobe. Robby Joseph MD Brain MRI 10/03/17 0000 Signed Impressions: Service Date/Time: September 14:43 - CONCLUSION: 1. No evidence of acute intracranial pathology. No masses are identified. 2. 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 Tyrone Bailey MD Objective Remarks GENERAL: Critically elderly gentleman currently intubated and sedated SKIN: Warm and dry. HEAD: Atraumatic. Normocephalic. EYES: Pupils equal and round. No scleral icterus. No injection or drainage. ENT: No nasal bleeding or discharge. Mucous membranes pink and moist. NECK: Trachea midline. No JVD. CARDIOVASCULAR: Normal rate, regular rhythm. RESPIRATORY: No accessory muscle use. Clear to auscultation. Breath sounds equal bilaterally. GASTROINTESTINAL: Abdomen soft, non-tender, nondistended. No guarding. MUSCULOSKELETAL: Extremities without clubbing, cyanosis, or edema. No obvious deformities. NEUROLOGICAL: GCS 3T . Intubated and sedated Urinary Catheter: Yes Assessment to: Remove A/P Assessment and Plan This is a 82-year-old critically ill-appearing gentleman with multiple chronic comorbidities. Presented with new onset seizures, in the setting of metabolic encephalopathy, and significant hyperkalemia. Discussion with and family, requests aggressive measures be continued. Plans for immediate hemodialysis, patient emergently intubated for airway protection, in the setting of persistent seizure activity. Admit to ICU. Plan by systems: Neurologic: New onset seizures Metabolic encephalopathy Neurochecks per ICU protocol 10/03 CT brain-chronic infarct right occipital lobe 10/03 CTA head -no stenosis, no thrombus 10/03 CTA neck-no stenosis no thrombus carotids patent Continuous EEG-no current seizure activity, slowing secondary to fentanyl infusion Patient received Keppra 1 g in ED Neurology following-Dr. Hopkins. Antiepileptic drug management per neurology Sherif Cedeno Obtain ammonia level 14 Respiratory: Acute hypoxemic respiratory failure 10/03-intubated for airway protection Ventilator bundle Maintain O2 sat greater than 92% wean FiO2 as tolerated Duo nebs every 6 hours scheduled every 2 hours when necessary CPAP trials today plan for SBT parameters and tentative extubation Cardiovascular: Hypertensive crisis-resolved Obtain map greater than 65 Labetalol 10 mg every 4 hours PRN, hydralazine 20 mg PRN Continue patient's home antihypertensive meds Renal: ESRD Nephrology following - Dr. Gonzalez IHD scheduled per nephrology -- Strict I/Os FEN/GI: Metabolic derangement 10/03 Potassium level 6.9-rec'd 10u Reg insulin, D50, Calcium gluconate 2 g, sodium bicarbonate1 amp Nephrology consulted-Dr. Gonzalez hemodialysis initiated Place OGT to LIWS-hold tube feeds, plan for extubation today. We'll initiate initiate Nepro if unsuccessful with extubation Heme/ID: Leukocytosis Monitor CBC Obtain blood ,urine and sputum culture Endocrine: Hyperglycemia of critical illness Glucose monitoring ICU protocol -- SSI Prophylaxis: GI Prophylaxis famotidine DVT Prophylaxis -- SCDs 5000 Heparin twice a day Lines: IVs providing adequate access. Central line if indicated Dispo: This patient remains critically ill with one or more organ systems which are or may become a threat to life. I have spent in excess of 30 minutes discontinuously in the care and management of this patient. This time is exclusive of procedures, and includes, but is not limited to, evaluation of the patient, review of the medical record, discussions with family, consultants, nursing staff, or respiratory therapy, and documentation in the medical record. Discussed medical update with Mrs Clifton and HUMAN RESOURCES TRAINER at bedside (Rickie) Physician Tracy Robles MD Oct 04, 2017 08:53
[2017-10-04] MEDS: ARTIFICIAL TEARS OPTH SOLN 15 ML BTL EACH EYE SCH ×3 (09:00→18:00)
[2017-10-04] MEDS: FAMOTIDINE 20 MG/2 ML VIAL IV PUSH SCH ×2 (09:00→20:19)
[2017-10-04] MEDS: DOCUSATE SODIUM 50 MG/SENNA 8.6 MG TAB PO SCH ×2 (09:00→20:20)
[2017-10-04] MEDS: SODIUM CHLORIDE 0.9% FLUSH 10 ML FLUSH IV FLUSH SCH ×2 (09:00→20:20)
[2017-10-04] MEDS: VALPROATE INJ 500 MG in SODIUM CHLORIDE 0.9% INJ 100 ML IV SCH ×2 (09:04→20:19)
[2017-10-04] MEDS: hydrALAZINE HCL 20 MG/ML VIAL IV PUSH PRN ×2 (11:17→20:32)
--- NOTE | 2017-10-04 15:58 | HHI.NPPN ---
Subjective History of Present Illness 82-year-old male with past medical history of hypertension, history of chronic anemia, end-stage renal disease on hemodialysis for the last 2 years, was brought to the hospital with altered level of consciousness and possible stroke alert. I was called to see the patient because of very high potassium and high BUN and creatinine. The patient has been on hemodialysis for the last 2 years, according to the , he has been getting dialysis Mondays and Fridays. Additional Remarks Patient is awake, now extubated, not in distress, remain confused. Objective Data Data 10/04/17 10/05/17 19:00 07:00 Output Total 3500 ml Balance -3500 ml Hemodialysis 3500 ml Vital Signs Date Time Temp Pulse Resp B/P (MAP) Pulse Ox O2 Delivery O2 Flow Rate FiO2 10/04/17 14:00 62 10/04/17 12:00 98.6 86 25 157/71 (99) 98 10/04/17 12:00 62 10/04/17 10:37 100 Nasal Cannula 3.00 10/04/17 10:37 100 Nasal Cannula 3 10/04/17 10:00 62 10/04/17 09:16 100 40 10/04/17 09:16 40 10/04/17 08:00 40 10/04/17 08:00 62 10/04/17 08:00 98.2 57 34 146/68 (94) 99 10/04/17 07:16 99 40 10/04/17 06:00 57 10/04/17 04:26 100 40 10/04/17 04:00 99.2 60 16 144/68 (93) 100 10/04/17 04:00 40 10/04/17 04:00 60 10/04/17 02:11 40 10/04/17 02:05 100 40 10/04/17 02:00 58 10/04/17 00:00 50 10/04/17 00:00 61 10/04/17 00:00 99.2 61 16 138/67 (90) 100 10/03/17 22:00 67 10/03/17 21:03 100 50 10/03/17 20:00 71 10/03/17 20:00 98.9 71 16 96/55 (69) 100 10/03/17 20:00 50 10/03/17 18:00 72 10/03/17 16:16 100 100 10/03/17 16:00 69 10/03/17 16:00 99.0 69 21 179/79 (112) 100 -: 10/04/17 0540 10/04/17 0540 Microbiology 10/03/17 Gram Stain - Final, Resulted 10/03/17 Sputum Culture - Preliminary, Resulted IMMATURE GROWTH - REINCUBATE Physical Exam General Appearance: No Acute Distress, Comfortable Eyes Eye Exam: Pupils Equal Throat Throat Exam: Oral Mucosa [place] & Moist Neck Neck Exam: Neck Supple Pulmonary Resp Exam: Breath Sounds Equal, Crackles, Rhonchi, Decreased Bases Gastrointestinal/Abdomen GI Exam: Soft, Non-Tender, Bowel Sounds Present Extremeties Extremities Exam: Trace Edema Neurologic Neuro Exam: Alert, Awake Assessment/Plan Assessment Summary: End Stage Renal Disease Electrolyte Assessment: Hyperkalemia Problem List: (1) End stage renal disease ICD Codes: N18.6 - End stage renal disease (2) Seizure ICD Codes: R56.9 - Unspecified convulsions (3) Respiratory failure ICD Codes: J96.90 - Respiratory failure, unspecified, unspecified whether with hypoxia or hypercapnia (4) Hyperkalemia ICD Codes: E87.5 - Hyperkalemia Status: Acute Plan K is now normal. Extubated. Has very high Creatinine. Most likely will need 3 times a week HD. Possibly uremic. HD will be in AM. Josh Gonzalez MD Oct 04, 2017 15:58
--- NOTE | 2017-10-04 17:24 | MG ---
cc: VICTOR MANUEL JANSEN MD Lab No: Date: 10/04/2017 Age: Sex: M Race: REFERRING PHYSICIAN Dr. Hopkins HISTORY: This is a dictation for EEG that was recorded yesterday 10/03/2017, there was technical error, that made reading difficult. The EEG was not readable. Thus it is read earlier today. MEDICAL HISTORY Stroke, coronary artery bypass graft, renal failure, dialysis, depression, new onset of the left sided weakness. Eyes jerking to the left, some weakness on the left arm and leg. DESCRIPTION: The electroencephalogram recording is contaminated with excessive movement artifact and electrode artifact during the recording. There is right temporal rhythmic activity with sharp sharps and spikes that is intermittent. During the entire recording, there is some background slowing in the readable portion of the EEG. INTERPRETATION Right-sided right focus of ictal activity throughout the recording with mild background slowing, that may indicate an encephalopathy. Clinical correlation is recommended MD KAREL Glover/no /3:09 PM /5:04 PM VALDE[place]
[2017-10-05] VITALS (13 sets, daily range): BP systolic 75–197; BP diastolic 53–92; PULSE 86–99; RESP 16–24; TEMP 98–98.8; O2SAT 93–99
[2017-10-05] MEDS: CHLORHEXIDINE GLUCONATE 2 % 1 PACK (2 CLOTHS) TOP SCH (04:00)
[2017-10-05] MEDS: RESP: ALBUTEROL 2.5 MG/IPRATROPIUM 0.5 MG NEB (SCH) INH ×4 (04:12→20:45)
[2017-10-05 05:07] LABS: AUTOMATED NEUTROPHIL # 9.3 TH/MM3 (1.8-7.7); BASOPHIL % 0.2 % (0.0-2.0); EOSINOPHIL # 0.1 TH/MM3 (0-0.4); EOSINOPHIL % 0.5 % (0.0-4.0); HEMATOCRIT 36.2 % (39.0-51.0); HEMO FLAGS DIFF FINAL; LYMPH % 9.9 % (9.0-44.0); LYMPHOCYTE # 1.2 TH/MM3 (1.0-4.8); MEAN CELL VOLUME 99.9 FL (80.0-100.0); MEAN CORPUSCULAR HEMOGLOBIN 32.6 PG (27.0-34.0); MEAN CORPUSCULAR HGB CONC 32.6 % (32.0-36.0); MONO % 12.5 % (0.0-8.0); NEUT % 76.9 % (16.0-70.0); PLATELET COUNT 237 TH/MM3 (150-450); RED BLOOD COUNT 3.63 MIL/MM3 (4.50-5.90); RED CELL DISTRIBUTION WIDTH 14.5 % (11.6-17.2); WHITE BLOOD COUNT 12.1 TH/MM3 (4.0-11.0)
--- NOTE | 2017-10-05 05:21 | RADRPT ---
EXAM DATE/TIME: 10/05/2017 03:51 [place] COMPARISON: CHEST SINGLE AP, October 04, 2017, 4:56. INDICATIONS : Shortness of breath, possible pulmonary disease. MEDICAL HISTORY : None. SURGICAL HISTORY : CABG. ENCOUNTER: Subsequent ACUITY: 3 days PAIN SCORE: Non-responsive. LOCATION: Bilateral chest FINDINGS: Cardiomegaly and sternotomy wires. No definite consolidation or effusion. Aortic calcification. CONCLUSION: No acute disease. Rui Pinto MD on October 05, 2017 at 5:19 Board Certified Radiologist. This report was verified electronically.
[2017-10-05 05:29] LABS: MAGNESIUM 1.9 MG/DL (1.5-2.5); POTASSIUM 4.7 MEQ/L (3.5-5.1)
[2017-10-05] MEDS: hydrALAZINE HCL 20 MG/ML VIAL IV PUSH PRN (06:04)
[2017-10-05] MEDS: levETIRAcetam INJ 500 MG in SODIUM CHLORIDE 0.9% INJ 100 ML IV SCH (06:04)
--- NOTE | 2017-10-05 06:36 | MG ---
cc: VICTOR MANUEL GARCIAS MD Lab No: Date: 10/04/2017 Age: 62 Sex: M Race: This in a EEG recording. DATE OF [address] Galarza. DESCRIPTION MEDICAL HISTORY Stroke. Coronary artery bypass graft Renal failure. Dialysis. Depression. New onset left sided weakness. Eyes jerking. Weakness in the left arm and left. MEDICATIONS 1. Keppra. 2. Trandate 3. Albuterol DESCRIPTION The patient was on 100 mcg of fentanyl, stopped at 07:30 a.m. next the EEG recording is from 7:23 to 7:47 on a 10/04/2017; at the beginning of the recording there was low voltage polymorphic delta and theta activity with movement artifact and muscle artifact. Hyperventilation was omitted. Photic stimulation did not elicit a driving response. There were no electrographic seizures or epileptiform discharges noted during the recording. The second recording at the same day was done from 13:10 to 13:17, there was also generalized slowing with excessive movement artifact. In the readable portion of this EEG there were no electrographic seizures or epileptiform discharges. INTERPRETATION The EEG recording was done at two different times. Initially there was generalized background slowing while the patient was on fentanyl. Later on that afternoon was also generalized slowing but with movement artifacts. There were no electrographic seizures or epileptiform discharges the generalized slow rate may indicate an encephalopathy that may be related to medication effect, hypoxia or metabolic abnormality. Clinical correlation is recommended. Victor Manuel Garcias MD [facility]/ /10:11 PM /6:16 AM [facility]ITAL[facility]ho[facility]
[2017-10-05] MEDS: DOCUSATE SODIUM 50 MG/SENNA 8.6 MG TAB PO SCH ×2 (09:00→22:13)
[2017-10-05] MEDS: EPOETIN ALFA 10,000 UNITS/ML VIAL IV PUSH PRN (10:41)
--- NOTE | 2017-10-05 11:53 | HHI.NPPN ---
Subjective History of Present Illness 82-year-old male with past medical history of hypertension, history of chronic anemia, end-stage renal disease on hemodialysis for the last 2 years, was brought to the hospital with altered level of consciousness and possible stroke alert. I was called to see the patient because of very high potassium and high BUN and creatinine. The patient has been on hemodialysis for the last 2 years, according to the , he has been getting dialysis Mondays and Fridays. Additional Remarks Patient is awake, now extubated, not in distress, remain confused. Objective Data Data Vital Signs Date Time Temp Pulse Resp B/P (MAP) Pulse Ox O2 Delivery O2 Flow Rate FiO2 10/05/17 10:00 88 10/05/17 08:00 98.4 97 22 179/72 (107) 96 10/05/17 08:00 88 10/05/17 06:00 90 10/05/17 04:00 98.7 94 24 135/79 (97) 99 10/05/17 04:00 94 10/05/17 02:00 91 10/05/17 00:00 98.8 99 18 112/66 (81) 99 10/05/17 00:00 99 10/04/17 22:00 99 10/04/17 21:00 101 19 144/63 (90) 98 10/04/17 20:00 99.1 92 20 204/86 (125) 100 10/04/17 20:00 100 Nasal Cannula 2.00 10/04/17 20:00 92 10/04/17 18:00 62 10/04/17 16:00 98.3 80 22 155/71 (99) 97 10/04/17 16:00 62 10/04/17 14:00 62 10/04/17 12:00 98.6 86 25 157/71 (99) 98 10/04/17 12:00 62 -: 10/05/17 0444 10/05/17 0444 Microbiology 10/05/17 Streptococcus pneumoniae Antigen (M - Final, Complete PRESUMPTIVE NEGATIVE FOR STREPTOCOCCU... Physical Exam General Appearance: No Acute Distress, Comfortable Eyes Eye Exam: Pupils Equal Throat Throat Exam: Oral Mucosa [place] & Moist Neck Neck Exam: Neck Supple Pulmonary Resp Exam: Breath Sounds Equal, Crackles, Rhonchi, Decreased Bases Gastrointestinal/Abdomen GI Exam: Soft, Non-Tender, Bowel Sounds Present Extremeties Extremities Exam: Trace Edema Neurologic Neuro Exam: Alert, Awake Assessment/Plan Assessment Summary: End Stage Renal Disease Electrolyte Assessment: Hyperkalemia Problem List: (1) End stage renal disease ICD Codes: N18.6 - End stage renal disease (2) Seizure ICD Codes: R56.9 - Unspecified convulsions (3) Respiratory failure ICD Codes: J96.90 - Respiratory failure, unspecified, unspecified whether with hypoxia or hypercapnia (4) Hyperkalemia ICD Codes: E87.5 - Hyperkalemia Status: Acute Plan l. Extubated. Has very high Creatinine. Most likely will need 3 times a week HD. Possibly uremic. HD 1.5 2k bath seen at [facility] Erin Johnson MD Oct 05, 2017 11:53
--- NOTE | 2017-10-05 12:52 | HHI.CCPN ---
Subjective Remarks/Hospital Course This is a 82-year-old male , presented to the ED with altered mental status. Per report the patient was noted to have left-sided weakness, aphasia and disorientation and nausea and vomiting.Reported NIHSS scale 19 initially called as a stroke alert .The patient was evaluated by Dr. Hopkins and assessed ,the patient was notably having active seizures, not a stroke. The patient was giving a dose of Ativan secondary to active seizures ,EEG was in progress with noted seizure activity . Upon my arrival to ED, I observed the patient obtunded which required emergent intubation, which I performed . Laboratory and imaging studies were performed ,he was noted to have a potassium level of 6.9. I administered 2 g of calcium gluconate, 10 units regular insulin and D50, as well as 2 Amps of sodium bicarbonate. He was also noted to be significantly hypertensive, upon my arrival SBP 240's.IV antihypertensive medication initiated. Nephrology was consulted. The patient's medical history significant for ESRD approximately 2 years, and he received dialysis 2 times a week, last dialysis was Saturday09/30/17.The patient's medical history is also significant for hypertension, prostate cancer, and a history of renal carcinoma status post left nephrectomy and partial right nephrectomy. Critical care medicine was consulted for management. Subjective: 10/04: Patient was dialyzed last night potassium level this a.m. 5.1. Continuous EEG monitoring in progress. The patient continues on Vimpat and Keppra per neurology management. Plans for CPAP trials with plan for possible extubation today. 10/05: No acute events overnight. Hemodialysis today 1.5 L off. Clear liquid diet initiated to be advanced to renal diet this afternoon. Patient is alert and responding to questions though patient is extremely hard of hearing. Patient denies pain. Objective Vital Signs Date Time Temp Pulse Resp B/P (MAP) Pulse Ox O2 Delivery O2 Flow Rate FiO2 10/05/17 10:00 88 10/05/17 08:00 98.4 22 179/72 (107) 96 10/04/17 20:00 Nasal Cannula 2.00 10/04/17 09:16 40 Intake and Output 10/05/17 10/05/17 10/06/17 08:00 16:00 00:00 Intake Total 345 ml Output Total 950 ml 1500 ml Balance -605 ml -1500 ml Result Diagram: 10/05/17 0444 10/05/17 0444 Other Results Microbiology Date/Time Source Procedure Growth Status 10/03/17 21:29 Sputum Endotracheal Gram Stain - Final Complete 10/03/17 21:29 Sputum Endotracheal Sputum Culture - Final HEAVY GROWTH NORMAL RESPIRATORY ALEXI Complete 10/05/17 02:40 Urine Catheterized Urine Streptococcus pneumoniae Antigen (M - Final PRESUMPTIVE NEGATIVE FOR STREPTOCOCCU... Complete Imaging Last Impressions Neck CTA 10/03/17 1135 Signed Impressions: Service Date/Time: September 11:40 - CONCLUSION: 1. Normal carotid arteries. No significant stenosis. No thrombus seen Monroe Sidhu MD Head CTA 10/03/17 1135 Signed Impressions: Service Date/Time: , October 03, 2017 11:40 - CONCLUSION: 1. No large vessel stenosis or aneurysm. 2. No thrombus. Monroe Sidhu MD Head CT 10/03/17 0000 Signed Impressions: Service Date/Time: , October 03, 2017 11:40 - CONCLUSION: 1. 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 2. No acute intracranial abnormality is identified. Age-related changes include mild cerebral atrophy and chronic periventricular white matter change. Robby Joseph MD Chest X-Ray 10/03/17 0000 Signed Impressions: Service Date/Time: September 13:25 - CONCLUSION: 1. Endotracheal tube in appropriate position with tip measuring 5.7 cm from the jose. 2. Mild atelectasis versus consolidation in the left lower lobe. Robby Joseph MD Brain MRI 10/03/17 0000 Signed Impressions: Service Date/Time: September 14:43 - CONCLUSION: 1. No evidence of acute intracranial pathology. No masses are identified. 2. 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 Tyrone Bailey MD Objective Remarks GENERAL: Well-nourished well-developed elderly gentleman awake and alert appropriately answering questions SKIN: Warm and dry. HEAD: Atraumatic. Normocephalic. EYES: Pupils equal and round. No scleral icterus. No injection or drainage. ENT: No nasal bleeding or discharge. Mucous membranes pink and moist. NECK: Trachea midline. No JVD. CARDIOVASCULAR: Normal rate, regular rhythm. RESPIRATORY: No accessory muscle use. Clear to auscultation. Breath sounds equal bilaterally. GASTROINTESTINAL: Abdomen soft, non-tender, nondistended. No guarding. MUSCULOSKELETAL: Extremities without clubbing, cyanosis, or edema. No obvious deformities. NEUROLOGICAL: GCS 15 . Following commands, moves extremities 4. Patient is hard of hearing. Wears bilateral hearing aids, to be brought in by A/P Assessment and Plan Plan by systems: Neurologic: New onset seizures Metabolic encephalopathy Hearing deficit Neurochecks per ICU protocol 10/03 CT brain-chronic infarct right occipital lobe 10/03 CTA head -no stenosis, no thrombus 10/03 CTA neck-no stenosis no thrombus carotids patent Continuous EEG-no current seizure activity, slowing secondary to fentanyl infusion Patient received Keppra 1 g in ED Neurology following-Dr. Hopkins. Antiepileptic drug management per neurology Pao Keppra 10/03 ammonia level 14 Respiratory: Acute hypoxemic respiratory failure 10/03-intubated for airway protection. Extubated Ventilator bundle Maintain O2 sat greater than 92% wean FiO2 as tolerated Duo nebs every 6 hours scheduled every 2 hours when necessary Begin incentive spirometry Cardiovascular: Hypertensive crisis-resolved Obtain MAP greater than 65 Labetalol 10 mg every 4 hours PRN, hydralazine 20 mg PRN Continue patient's home antihypertensive meds Renal: ESRD Nephrology following - Dr. Gonzalez IHD scheduled per nephrology, 10/05 1.5 liters removed -- Strict I/Os FEN/GI: Metabolic derangement 10/03 Potassium level 6.9-rec'd 10u Reg insulin, D50, Calcium gluconate 2 g, sodium bicarbonate1 amp (in ED) 10/03 Nephrology consulted-Dr. Gonzalez hemodialysis initiated Bedside swallow-clear liquid diet, advance to renal diet this evening IHD scheduled per nephrology-patient will most likely need to increase dialysis to 3 times a week on outpatient basis per Dr. Mera Bowel regimen Heme/ID: Leukocytosis Monitor CBC. 10/03 blood ,urine and sputum cultures- NGTD Endocrine: Hyperglycemia of critical illness Glucose monitoring ICU protocol -- SSI Prophylaxis: GI Prophylaxis famotidine DVT Prophylaxis -- SCDs 5000 Heparin twice a day Lines: IVs providing adequate access. Central line if indicated Dispo: Level 2 plan transfer to [place] hospitalists in a.m. Plan transfer to floor Discussed medical update with Mrs Clifton and PERFORMING [employer] MANAGER at bedside (Rickie) Physician Tracy Robles MD Oct 05, 2017 12:52
[2017-10-05] MEDS: VALPROATE INJ 500 MG in SODIUM CHLORIDE 0.9% INJ 100 ML IV SCH ×2 (13:25→22:23)
[2017-10-05] MEDS: SODIUM CHLORIDE 0.9% FLUSH 10 ML FLUSH IV FLUSH SCH ×2 (13:26→22:14)
[2017-10-05] MEDS: FAMOTIDINE 20 MG/2 ML VIAL IV PUSH SCH (13:26)
[2017-10-05] MEDS: LABETALOL HCL 100 MG/20 ML VIAL IV PUSH PRN (17:58)
[2017-10-05] MEDS ORDERED: VALPROATE INJ 500 MG in SODIUM CHLORIDE 0.9% INJ 100 ML IV ONE (19:45)
--- NOTE | 2017-10-05 19:52 | HHI.PR ---
Review/Management Diagnosis H/o remote ischemic stroke Electrographic seizures Respiratory failure HTN Plan Neuro checks Q1h Loaded iv Valproate 500mg Obtain VLP level next am Continue Keppra 500mg Q 12h Seizure precautions Continue supportive medical therapy Diagnosis/Plan: Subjective Subjective Comments No acute events reported Follow up EEG with no evidence of an ictal abnormality or epileptiform discharges Valproate level is subtherapeutic at [30] Active Medications Current Medications Medications (Trade) Dose Ordered Sig/Génesis Route Start Time Stop Time Status Last Admin (NS Flush) 2 ml UNSCH PRN IVF 10/03/17 12:45 Levetriacetam 500 mg/Sodium Chloride 105 ml @ 420 mls/hr DAILY@0600 IV 10/04/17 06:00 10/05/17 06:04 Sodium Chloride 1,000 ml @ 0 mls/hr Q0M PRN OTHER 10/03/17 13:28 10/05/17 10:42 (Heparin Inj) 8,000 units UNSCH PRN IV FLUSH 10/03/17 13:30 Sodium Chloride 1,000 ml @ 200 mls/hr Q5H PRN IV 10/03/17 13:28 Sodium Chloride 1,000 ml @ 0 mls/hr Q0M PRN OTHER 10/03/17 13:28 (Mannitol Inj) 12.5 gm UNSCH PRN IV 10/03/17 13:30 Albumin Human 100 ml @ 60 mls/hr UNSCH PRN IV 10/03/17 13:30 (NS Flush) 5 ml UNSCH PRN IV FLUSH 10/03/17 13:30 (Heparin Inj) UNSCH PRN .XX 10/03/17 13:30 (Gentamicin (Dialysis) Inj) 20 mg UNSCH PRN OTHER 10/03/17 13:30 (Zofran Inj) 4 mg UNSCH PRN IV PUSH 10/03/17 13:30 10/04/17 11:48 (Tylenol) 650 mg UNSCH PRN PO 10/03/17 13:30 (Benadryl) 25 mg UNSCH PRN PO 10/03/17 13:30 (Nitrostat Sl) 0.4 mg UNSCH PRN SL 10/03/17 13:30 (Epogen Inj) 6,000 units UNSCH PRN IV PUSH 10/03/17 13:30 10/05/17 10:41 (Gelfoam 12 Mm/7 Mm Top) 1 foam UNSCH PRN TOP 10/03/17 13:30 10/05/17 10:42 (NS Flush) 2 ml UNSCH PRN IV FLUSH 10/03/17 13:45 (NS Flush) 2 ml BID IV FLUSH 10/03/17 21:00 10/05/17 13:26 (Tylenol) 650 mg Q6HR PRN PO 10/03/17 18:00 (Ativan Inj) 1 mg Q1H PRN IV PUSH 10/03/17 15:00 10/03/17 12:10 (Zofran Inj) 4 mg Q6HR PRN IV PUSH 10/03/17 18:00 (Duoneb Neb) 1 ampule Q6HR NEB INH 10/03/17 16:00 10/05/17 16:48 (Atrovent Neb) 0.5 mg Q2HR NEB PRN INH 10/03/17 16:00 Miscellaneous Information 1 Q361D XX 10/03/17 13:45 10/04/17 05:00 (Chlorhexidine 2% Cloth) 3 pack Taper DAILY@04 TOP 10/04/17 04:00 09/30/18 03:59 10/05/17 04:00 (Chlorhexidine 2% Cloth) 3 pack UNSCH PRN TOP 10/03/17 13:45 (Unique-Colace) 1 tab BID PO 10/03/17 21:00 10/04/17 09:00 (Milk Of Magnesia Liq) 30 ml Q12H PRN PO 10/03/17 13:45 (Senokot) 17.2 mg Q12H PRN PO 10/03/17 13:45 (Dulcolax Supp) 10 mg DAILY PRN RECTAL 10/03/17 13:45 (Lactulose Liq) 30 ml DAILY PRN PO 10/03/17 13:45 (Peridex 0.12% Liq) 15 ml BID@08,20 MT 10/03/17 20:00 10/03/17 20:11 (Trandate Inj) 10 mg Q6HR PRN IV PUSH 10/03/17 18:00 10/05/17 17:58 Valproate Sodium 500 mg/Sodium Chloride 105 ml @ 105 mls/hr BID IV 10/04/17 09:00 10/05/17 13:25 (Pepcid) 10 mg BID PO 10/05/17 21:00 Valproate Sodium 500 mg/Sodium Chloride 105 ml @ 105 mls/hr ONCE ONCE IV 10/05/17 19:45 10/05/17 20:44 Allergies Allergies Coded Allergies No Known Allergies ([id number]/7/17) Review of Systems All other ROS: ROS reviewed as documented in chart Exam I&O / VS 10/05/17 10/05/17 10/06/17 15:00 23:00 07:00 Intake Total 1240 ml Output Total 1500 ml Balance -1500 ml 1240 ml Intake Oral 240 ml IV Total 1000 ml Hemodialysis 1500 ml # Voids 2 Vital Signs Date Time Temp Pulse Resp B/P (MAP) Pulse Ox O2 Delivery O2 Flow Rate FiO2 10/05/17 18:00 88 10/05/17 16:48 95 10/05/17 16:00 98.0 92 16 173/81 (111) 96 10/05/17 16:00 88 10/05/17 14:00 88 10/05/17 12:00 88 10/05/17 12:00 98.0 96 16 171/81 (111) 95 10/05/17 10:00 88 10/05/17 08:00 98.4 97 22 179/72 (107) 96 10/05/17 08:00 88 10/05/17 06:00 90 10/05/17 04:00 98.7 94 24 135/79 (97) 99 10/05/17 04:00 94 10/05/17 02:00 91 10/05/17 00:00 98.8 99 18 112/66 (81) 99 10/05/17 00:00 99 10/04/17 22:00 99 10/04/17 21:00 101 19 144/63 (90) 98 10/04/17 20:00 99.1 92 20 204/86 (125) 100 10/04/17 20:00 100 Nasal Cannula 2.00 10/04/17 20:00 92 Objective Radiology Results Last 72 hours Impressions Chest X-Ray 10/05/17 0600 Signed Impressions: Service Date/Time: Thursday, October 05, 2017 03:51 - CONCLUSION: No acute disease. Rui Pinto MD Chest X-Ray 10/04/17 0600 Signed Impressions: Service Date/Time: Wednesday, October 04, 2017 04:56 - CONCLUSION: No significant change has occurred. Rui Pinto MD Neck CTA 10/03/17 1135 Signed Impressions: Service Date/Time: September 11:40 - CONCLUSION: 1. Normal carotid arteries. No significant stenosis. No thrombus seen Monroe Sidhu MD Head CTA 10/03/17 1135 Signed Impressions: Service Date/Time: September 11:40 - CONCLUSION: 1. No large vessel stenosis or aneurysm. 2. No thrombus. Monroe Sidhu MD Head CT 10/03/17 0000 Signed Impressions: Service Date/Time: September 11:40 - CONCLUSION: 1. 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 2. No acute intracranial abnormality is identified. Age-related changes include mild cerebral atrophy and chronic periventricular white matter change. Robby Joseph MD Chest X-Ray 10/03/17 0000 Signed Impressions: Service Date/Time: September 13:25 - CONCLUSION: 1. Endotracheal tube in appropriate position with tip measuring 5.7 cm from the jose. 2. Mild atelectasis versus consolidation in the left lower lobe. Robby Joseph MD Brain MRI 10/03/17 0000 Signed Impressions: Service Date/Time: September 14:43 - CONCLUSION: 1. No evidence of acute intracranial pathology. No masses are identified. 2. 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 Tyrone Bailey MD Micro and Labs Laboratory Tests Test 10/05/17 04:44 White Blood Count 12.1 Red Blood Count 3.63 Hemoglobin 11.8 Hematocrit 36.2 Mean Corpuscular Volume 99.9 Mean Corpuscular Hemoglobin 32.6 Mean Corpuscular Hemoglobin Concent 32.6 Red Cell Distribution Width 14.5 Platelet Count 237 Mean Platelet Volume 7.5 Neutrophils (%) (Auto) 76.9 Lymphocytes (%) (Auto) 9.9 Monocytes (%) (Auto) 12.5 Eosinophils (%) (Auto) 0.5 Basophils (%) (Auto) 0.2 Neutrophils # (Auto) 9.3 Lymphocytes # (Auto) 1.2 Monocytes # (Auto) 1.5 Eosinophils # (Auto) 0.1 Basophils # (Auto) 0.0 CBC Comment DIFF FINAL Differential Comment Blood Urea Nitrogen 71 Creatinine 9.19 Random Glucose 126 Calcium Level 8.8 Phosphorus Level 6.6 Magnesium Level 1.9 Sodium Level 138 Potassium Level 4.7 Chloride Level 102 Carbon Dioxide Level 22.0 Anion Gap 14 Estimat Glomerular Filtration Rate 6 Valproic Acid (Depakene) Level 30 Date/Time Source Procedure Growth Status 10/03/17 21:29 Sputum Endotracheal Gram Stain - Final Complete 10/03/17 21:29 Sputum Endotracheal Sputum Culture - Final HEAVY GROWTH NORMAL RESPIRATORY ALEXI Complete 10/05/17 02:40 Urine Catheterized Urine Streptococcus pneumoniae Antigen (M - Final PRESUMPTIVE NEGATIVE FOR STREPTOCOCCU... Complete Roxie Garcias MD Oct 05, 2017 19:52
[2017-10-05] MEDS ORDERED: cloNIDine HCL 0.2 MG TAB PO ONE (22:00)
[2017-10-05] MEDS: FAMOTIDINE 20 MG TAB PO SCH (22:13)
[2017-10-05] MEDS: CHLORHEXIDINE 0.12% (ORAL KIT) 15 ML CUP MT SCH (22:14)
[2017-10-06] VITALS (12 sets, daily range): BP systolic 132–175; BP diastolic 64–84; PULSE 63–90; RESP 16–20; TEMP 97.4–98.8; O2SAT 93–96
[2017-10-06] MEDS: RESP: ALBUTEROL 2.5 MG/IPRATROPIUM 0.5 MG NEB (SCH) INH ×4 (03:20→21:15)
[2017-10-06] MEDS: CHLORHEXIDINE GLUCONATE 2 % 1 PACK (2 CLOTHS) TOP SCH (03:47)
[2017-10-06] MEDS: levETIRAcetam INJ 500 MG in SODIUM CHLORIDE 0.9% INJ 100 ML IV SCH (06:18)
[2017-10-06] MEDS: CHLORHEXIDINE 0.12% (ORAL KIT) 15 ML CUP MT SCH ×2 (08:00→20:08)
[2017-10-06] MEDS: DOCUSATE SODIUM 50 MG/SENNA 8.6 MG TAB PO SCH ×2 (09:22→20:07)
[2017-10-06] MEDS: FAMOTIDINE 20 MG TAB PO SCH ×2 (09:22→20:07)
[2017-10-06] MEDS: SODIUM CHLORIDE 0.9% FLUSH 10 ML FLUSH IV FLUSH SCH ×2 (09:23→20:08)
[2017-10-06] MEDS: VALPROATE INJ 500 MG in SODIUM CHLORIDE 0.9% INJ 100 ML IV SCH ×2 (09:23→20:07)
--- NOTE | 2017-10-06 09:49 | HHI.PR ---
Subjective Remarks Follow up for seizure activity. Patient is currently doing well. No acute concerns. No further seizure activity. Tolerating diet well. Ambulating well. Wants to be able to sit in the chair in his room. Objective Vitals Vital Signs Date Time Temp Pulse Resp B/P (MAP) Pulse Ox O2 Delivery O2 Flow Rate FiO2 10/06/17 09:07 96 21 10/06/17 08:28 98.5 71 18 154/81 (105) 96 10/06/17 04:00 98.8 63 17 171/84 (113) 94 10/06/17 00:00 97.8 90 18 132/65 (87) 94 10/05/17 20:50 94 10/05/17 20:00 98.8 86 17 197/92 (127) 93 10/05/17 18:00 88 10/05/17 16:48 95 10/05/17 16:00 98.0 92 16 173/81 (111) 96 10/05/17 16:00 88 10/05/17 14:00 88 10/05/17 12:00 88 10/05/17 12:00 98.0 96 16 171/81 (111) 95 10/05/17 10:00 88 I/O 10/05/17 10/05/17 10/05/17 10/06/17 10/06/17 10/06/17 07:00 15:00 23:00 07:00 15:00 23:00 Intake Total 345 ml 1240 ml 560 ml Output Total 950 ml 1500 ml Balance -605 ml -1500 ml 1240 ml 560 ml Intake Oral 240 ml 240 ml 360 ml IV Total 105 ml 1000 ml 200 ml Output Urine Total 950 ml Hemodialysis 1500 ml # Voids 4 2 1 Result Diagram: 10/05/174 10/05/174 Imaging Last Impressions Chest X-Ray 10/05/17 0600 Signed Impressions: Service Date/Time: Thursday, October 05, 2017 03:51 - CONCLUSION: No acute disease. Rui Pinto MD Neck CTA 10/03/171134 Signed Impressions: Service Date/Time: September 11:40 - CONCLUSION: 1. Normal carotid arteries. No significant stenosis. No thrombus seen Monroe Sidhu MD Head CTA [id number]/03/[id number] Signed Impressions: Service Date/Time: September 11:40 - CONCLUSION: 1. No large vessel stenosis or aneurysm. 2. No thrombus. Monroe Sidhu MD Head CT 10/03/17 0000 Signed Impressions: Service Date/Time: September 11:40 - CONCLUSION: 1. 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 2. No acute intracranial abnormality is identified. Age-related changes include mild cerebral atrophy and chronic periventricular white matter change. Robby Joseph MD Brain MRI 10/03/17 0000 Signed Impressions: Service Date/Time: September 14:43 - CONCLUSION: 1. No evidence of acute intracranial pathology. No masses are identified. 2. 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 Tyrone Bailey MD Objective Remarks GENERAL: AOX3, NAD. SKIN: Warm and dry. HEAD: Normocephalic. EYES: No scleral icterus. No injection or drainage. NECK: Supple, trachea midline. No JVD or lymphadenopathy. CARDIOVASCULAR: Regular rate and rhythm without murmurs, gallops, or rubs. RESPIRATORY: Breath sounds equal bilaterally. No accessory muscle use. GASTROINTESTINAL: Abdomen soft, non-tender, nondistended. MUSCULOSKELETAL: No cyanosis, or edema. BACK: Nontender without obvious deformity. No CVA tenderness. Procedures EEG 10/05/2017 The EEG recording was done at two different times. Initially there was generalized background slowing while the patient was on fentanyl. Later on that afternoon was also generalized slowing but with movement artifacts. There were no electrographic seizures or epileptiform discharges the generalized slow rate may indicate an encephalopathy that may be related to medication effect, hypoxia or metabolic abnormality. Clinical correlation is recommended. EEG 10/04/2017 Right-sided right focus of ictal activity throughout the recording with mild background slowing, that may indicate an encephalopathy. Clinical correlation is recommended A/P Problem List: (1) Seizure ICD Code: R56.9 - Unspecified convulsions (2) Respiratory failure ICD Code: J96.90 - Respiratory failure, unspecified, unspecified whether with hypoxia or hypercapnia (3) End stage renal disease ICD Code: N18.6 - End stage renal disease Assessment and Plan This is a 82-year-old male , presented to the ED with altered mental status. Per report the patient was noted to have left-sided weakness, aphasia and disorientation and nausea and vomiting.Reported NIHSS scale 19 initially called as a stroke alert .The patient was evaluated by Dr. Hopkins and assessed ,the patient was notably having active seizures, not a stroke. The patient was giving a dose of Ativan secondary to active seizures ,EEG was in progress with noted seizure activity. Patient was found obtunded and was intubated. Patient was dialyzed by nephrology due to hyperkalemia, ESRD. He was extubated on 10/04/2017 and transferred to the floor on 10/05/2017. - New onset seizure disorder - 10/03 CT brain-chronic infarct right occipital lobe - 10/03 CTA head -no stenosis, no thrombus - 10/03 CTA neck-no stenosis no thrombus carotids patent - Continuous EEG-no current seizure activity, slowing secondary to fentanyl infusion - Currently on Valproate 750mg IV Q12hrs and Keppra 500mg IV QAM. Neurology is following. - End stage renal disease - Nephrology following. Patient was on dialysis twice a week. Currently on Tue, Yenny, Sat dialysis. - Electrolytes are Na 139, K+ 4.4, Cl 101, Mg 2.1 - Acute respiratory failure - resolved. - 10/03-intubated for airway protection. Extubated - DuoNebs PRN. - Hypertension - BP in the 160s to 170s range systolic. - If it remains elevated, we will consider low dose Amlodipine for BP control. Full code. Heparin SQ 5000 units Q12hrs. Discharge: If cleared by neurology, patient can likely be discharged home with home health. Dominic Schreiber DO Oct 06, 2017 09:49
[2017-10-06 10:43] LABS: AUTOMATED NEUTROPHIL # 6.7 TH/MM3 (1.8-7.7); BASOPHIL % 0.3 % (0.0-2.0); EOSINOPHIL # 0.2 TH/MM3 (0-0.4); EOSINOPHIL % 2.1 % (0.0-4.0); HEMATOCRIT 34.7 % (39.0-51.0); HEMO FLAGS DIFF FINAL; LYMPH % 10.8 % (9.0-44.0); MEAN CORPUSCULAR HEMOGLOBIN 33.8 PG (27.0-34.0); MEAN CORPUSCULAR HGB CONC 34.4 % (32.0-36.0); MONO % 12.6 % (0.0-8.0); NEUT % 74.2 % (16.0-70.0); PLATELET COUNT 204 TH/MM3 (150-450); RED BLOOD COUNT 3.54 MIL/MM3 (4.50-5.90); RED CELL DISTRIBUTION WIDTH 14.8 % (11.6-17.2); WHITE BLOOD COUNT 9.1 TH/MM3 (4.0-11.0)
[2017-10-06 11:06] LABS: BICARBONATE 27.9 MEQ/L (21.0-32.0); MAGNESIUM 2.1 MG/DL (1.5-2.5)
[2017-10-06 11:07] LABS: POTASSIUM 4.4 MEQ/L (3.5-5.1)
--- NOTE | 2017-10-06 14:59 | HHI.NPPN ---
Subjective History of Present Illness 82-year-old male with past medical history of hypertension, history of chronic anemia, end-stage renal disease on hemodialysis for the last 2 years, was brought to the hospital with altered level of consciousness and possible stroke alert. I was called to see the patient because of very high potassium and high BUN and creatinine. The patient has been on hemodialysis for the last 2 years, according to the , he has been getting dialysis Mondays and Fridays. Additional Remarks Patient is awake,alert and responsive Objective Data Data 10/06/17 10/07/17 19:00 07:00 Intake Total 100 ml Balance 100 ml IV Total 100 ml Vital Signs Date Time Temp Pulse Resp B/P (MAP) Pulse Ox O2 Delivery O2 Flow Rate FiO2 10/06/17 14:21 74 10/06/17 12:21 98.0 68 18 157/77 (103) 95 10/06/17 10:56 74 10/06/17 09:07 96 21 10/06/17 08:28 98.5 71 18 154/81 (105) 96 10/06/17 04:00 98.8 63 17 171/84 (113) 94 10/06/17 00:00 97.8 90 18 132/65 (87) 94 10/05/17 20:50 94 10/05/17 20:00 98.8 86 17 197/92 (127) 93 10/05/17 18:00 88 10/05/17 16:48 95 10/05/17 16:00 98.0 92 16 173/81 (111) 96 10/05/17 16:00 88 -: 10/06/17 0941 10/06/17 0941 Physical Exam General Appearance: No Acute Distress, Comfortable Eyes Eye Exam: Pupils Equal Throat Throat Exam: Oral Mucosa [place] & Moist Neck Neck Exam: Neck Supple Pulmonary Resp Exam: Breath Sounds Equal, Crackles, Rhonchi, Decreased Bases Gastrointestinal/Abdomen GI Exam: Soft, Non-Tender, Bowel Sounds Present Extremeties Extremities Exam: Trace Edema Neurologic Neuro Exam: Alert, Awake Assessment/Plan Assessment Summary: End Stage Renal Disease Electrolyte Assessment: Hyperkalemia Problem List: (1) End stage renal disease ICD Codes: N18.6 - End stage renal disease (2) Seizure ICD Codes: R56.9 - Unspecified convulsions (3) Respiratory failure ICD Codes: J96.90 - Respiratory failure, unspecified, unspecified whether with hypoxia or hypercapnia (4) Hyperkalemia ICD Codes: E87.5 - Hyperkalemia Status: Acute Plan HD done yesterday Today he awake and responsive likely uremic ESRD Follows with Erin New MD Oct 06, 2017 14:59
--- NOTE | 2017-10-06 22:08 | HHI.PR ---
Review/Management Diagnosis H/o remote ischemic stroke Electrographic seizures Respiratory failure HTN Plan Neuro checks Q1h Increased VLP dose to 750mg Q12h Obtain VLP level next am Continue Keppra 500mg once daily Seizure precautions Continue supportive medical therapy Dr. Maradiaga will follow up on Saturday Please call for questions Diagnosis/Plan: Subjective Subjective Comments No acute events reported VLP is subtherapeutic Follow up EEG with no ictal activity or epileptiform discharges Active Medications Current Medications Medications (Trade) Dose Ordered Sig/Génesis Route Start Time Stop Time Status Last Admin (NS Flush) 2 ml UNSCH PRN IVF 10/03/17 12:45 Levetriacetam 500 mg/Sodium Chloride 105 ml @ 420 mls/hr DAILY@0600 IV 10/04/17 06:00 10/06/17 06:18 Sodium Chloride 1,000 ml @ 0 mls/hr Q0M PRN OTHER 10/03/17 13:28 10/05/17 10:42 (Heparin Inj) 8,000 units UNSCH PRN IV FLUSH 10/03/17 13:30 Sodium Chloride 1,000 ml @ 200 mls/hr Q5H PRN IV 10/03/17 13:28 Sodium Chloride 1,000 ml @ 0 mls/hr Q0M PRN OTHER 10/03/17 13:28 (Mannitol Inj) 12.5 gm UNSCH PRN IV 10/03/17 13:30 Albumin Human 100 ml @ 60 mls/hr UNSCH PRN IV 10/03/17 13:30 (NS Flush) 5 ml UNSCH PRN IV FLUSH 10/03/17 13:30 (Heparin Inj) UNSCH PRN .XX 10/03/17 13:30 (Gentamicin (Dialysis) Inj) 20 mg UNSCH PRN OTHER 10/03/17 13:30 (Zofran Inj) 4 mg UNSCH PRN IV PUSH 10/03/17 13:30 10/04/17 11:48 (Tylenol) 650 mg UNSCH PRN PO 10/03/17 13:30 (Benadryl) 25 mg UNSCH PRN PO 10/03/17 13:30 (Nitrostat Sl) 0.4 mg UNSCH PRN SL 10/03/17 13:30 (Epogen Inj) 6,000 units UNSCH PRN IV PUSH 10/03/17 13:30 10/05/17 10:41 (Gelfoam 12 Mm/7 Mm Top) 1 foam UNSCH PRN TOP 10/03/17 13:30 10/05/17 10:42 (NS Flush) 2 ml UNSCH PRN IV FLUSH 10/03/17 13:45 (NS Flush) 2 ml BID IV FLUSH 10/03/17 21:00 10/06/17 20:08 (Tylenol) 650 mg Q6HR PRN PO 10/03/17 18:00 (Ativan Inj) 1 mg Q1H PRN IV PUSH 10/03/17 15:00 10/03/17 12:10 (Zofran Inj) 4 mg Q6HR PRN IV PUSH 10/03/17 18:00 (Duoneb Neb) 1 ampule Q6HR NEB INH 10/03/17 16:00 10/06/17 21:15 (Atrovent Neb) 0.5 mg Q2HR NEB PRN INH 10/03/17 16:00 Miscellaneous Information 1 Q361D XX 10/03/17 13:45 10/04/17 05:00 (Chlorhexidine 2% Cloth) 3 pack Taper DAILY@04 TOP 10/04/17 04:00 09/30/18 03:59 10/05/17 04:00 (Chlorhexidine 2% Cloth) 3 pack UNSCH PRN TOP 10/03/17 13:45 (Unique-Colace) 1 tab BID PO 10/03/17 21:00 10/06/17 20:07 (Milk Of Magnesia Liq) 30 ml Q12H PRN PO 10/03/17 13:45 (Senokot) 17.2 mg Q12H PRN PO 10/03/17 13:45 (Dulcolax Supp) 10 mg DAILY PRN RECTAL 10/03/17 13:45 (Lactulose Liq) 30 ml DAILY PRN PO 10/03/17 13:45 (Peridex 0.12% Liq) 15 ml BID@08,20 MT 10/03/17 20:00 10/03/17 20:11 (Trandate Inj) 10 mg Q6HR PRN IV PUSH 10/03/17 18:00 10/05/17 17:58 Valproate Sodium 500 mg/Sodium Chloride 105 ml @ 105 mls/hr BID IV 10/04/17 09:00 10/06/17 20:07 (Pepcid) 10 mg BID PO 10/05/17 21:00 10/06/17 20:07 Allergies Allergies Coded Allergies No Known Allergies ([id number]/7/17) Review of Systems All other ROS: ROS reviewed as documented in chart Exam I&O / VS 10/06/17 10/06/17 10/07/17 15:00 23:00 07:00 Intake Total 100 ml 100 ml Balance 100 ml 100 ml IV Total 100 ml 100 ml Vital Signs Date Time Temp Pulse Resp B/P (MAP) Pulse Ox O2 Delivery O2 Flow Rate FiO2 10/06/17 20:04 97.8 78 20 160/75 (103) 95 10/06/17 17:13 97.4 75 18 175/83 (113) 94 10/06/17 17:02 76 10/06/17 16:28 95 21 10/06/17 14:21 74 10/06/17 12:21 98.0 68 18 157/77 (103) 95 10/06/17 10:56 74 10/06/17 09:07 96 21 10/06/17 08:28 98.5 71 18 154/81 (105) 96 10/06/17 04:00 98.8 63 17 171/84 (113) 94 10/06/17 00:00 97.8 90 18 132/65 (87) 94 Objective Radiology Results Last 72 hours Impressions Chest X-Ray 10/05/17 0600 Signed Impressions: Service Date/Time: Thursday, October 05, 2017 03:51 - CONCLUSION: No acute disease. Rui Pinto MD Chest X-Ray 10/04/17 0600 Signed Impressions: Service Date/Time: Wednesday, October 04, 2017 04:56 - CONCLUSION: No significant change has occurred. Rui Pinto MD Micro and Labs Laboratory Tests Test 10/06/17 09:41 White Blood Count 9.1 Red Blood Count 3.54 Hemoglobin 11.9 Hematocrit 34.7 Mean Corpuscular Volume 98.0 Mean Corpuscular Hemoglobin 33.8 Mean Corpuscular Hemoglobin Concent 34.4 Red Cell Distribution Width 14.8 Platelet Count 204 Mean Platelet Volume 8.5 Neutrophils (%) (Auto) 74.2 Lymphocytes (%) (Auto) 10.8 Monocytes (%) (Auto) 12.6 Eosinophils (%) (Auto) 2.1 Basophils (%) (Auto) 0.3 Neutrophils # (Auto) 6.7 Lymphocytes # (Auto) 1.0 Monocytes # (Auto) 1.1 Eosinophils # (Auto) 0.2 Basophils # (Auto) 0.0 CBC Comment DIFF FINAL Differential Comment Blood Urea Nitrogen 48 Creatinine 7.32 Random Glucose 99 Calcium Level 9.0 Magnesium Level 2.1 Sodium Level 139 Potassium Level 4.4 Chloride Level 101 Carbon Dioxide Level 27.9 Anion Gap 10 Estimat Glomerular Filtration Rate 7 Valproic Acid (Depakene) Level 29 Date/Time Source Procedure Growth Status 10/03/17 21:29 Sputum Endotracheal Gram Stain - Final Complete 10/03/17 21:29 Sputum Endotracheal Sputum Culture - Final HEAVY GROWTH NORMAL RESPIRATORY ALEXI Complete 10/05/17 02:40 Urine Catheterized Urine Streptococcus pneumoniae Antigen (M - Final PRESUMPTIVE NEGATIVE FOR STREPTOCOCCU... Complete Roxie Garcias MD Oct 06, 2017 22:08
[2017-10-06] MEDS ORDERED: VALPROATE INJ 750 MG in SODIUM CHLORIDE 0.9% INJ 100 ML IV SCH (22:15)
[2017-10-06] MEDS ORDERED: VALPROATE INJ 250 MG in SODIUM CHLORIDE 0.9% INJ 100 ML IV ONE (22:30)
[2017-10-07] VITALS (8 sets, daily range): BP systolic 161–178; BP diastolic 79–92; PULSE 62–91; RESP 18–20; TEMP 97.6–99; O2SAT 93–96
[2017-10-07] MEDS: RESP: ALBUTEROL 2.5 MG/IPRATROPIUM 0.5 MG NEB (SCH) INH ×2 (03:03→12:15)
[2017-10-07] MEDS: CHLORHEXIDINE GLUCONATE 2 % 1 PACK (2 CLOTHS) TOP SCH (03:31)
[2017-10-07] MEDS: levETIRAcetam INJ 500 MG in SODIUM CHLORIDE 0.9% INJ 100 ML IV SCH (05:59)
[2017-10-07] MEDS: CHLORHEXIDINE 0.12% (ORAL KIT) 15 ML CUP MT SCH (08:00)
--- NOTE | 2017-10-07 08:00 | HHI.FF ---
Face to Face Verification Diagnosis: (1) Seizure (2) End stage renal disease Physical Therapy Order: Evaluate and Treat, Improve ambulation, Strength and gait training Home Health Nursing Order: Signs/symptoms of disease process Medication education-adverse effect Nursing assessment with vital signs I have seen patient Tyrone Clifton on 10/07/17. My clinical findings support the need for the requested home health care services because: Ltd mobility - disease progression Deconditioned w/ increased weakness Limited ability to care for self Need for psychosocial assistance High risk of falls Infection w/ risk of complications I certify that my clinical findings support that this patient is homebound because: Unsteady gait/balance Unsafe to leave home unassisted Unable to use public transportation Dominic Schreiber DO Oct 07, 2017 8:00 am
--- NOTE | 2017-10-07 08:13 | HHI.PR ---
Subjective Remarks off vent on floor Objective Vital Signs Date Time Temp Pulse Resp B/P (MAP) Pulse Ox O2 Delivery O2 Flow Rate FiO2 10/07/17 08:03 97.6 71 20 161/79 (106) 93 10/07/17 04:48 98.5 80 18 169/92 (117) 94 10/07/17 03:03 96 21 10/07/17 00:02 76 10/07/17 00:00 99.0 62 18 178/83 (114) 94 10/06/17 20:17 78 10/06/17 20:04 97.8 78 20 160/75 (103) 95 10/06/17 17:13 97.4 75 18 175/83 (113) 94 10/06/17 17:02 76 10/06/17 16:28 95 21 10/06/17 14:21 74 10/06/17 12:21 98.0 68 18 157/77 (103) 95 10/06/17 10:56 74 10/06/17 09:07 96 21 10/06/17 08:28 98.5 71 18 154/81 (105) 96 I/O 10/06/17 10/06/17 10/06/17 10/07/17 10/07/17 10/07/17 07:00 15:00 23:00 07:00 15:00 23:00 Intake Total 560 ml 100 ml 100 ml 441 ml Output Total 800 ml 1000 ml Balance 560 ml 100 ml -700 ml -559 ml Intake Oral 360 ml 240 ml IV Total 200 ml 100 ml 100 ml 201 ml Output Urine Total 800 ml 1000 ml # Voids 1 1 Result Diagram: 10/06/1794010/06/17940 Objective Remarks awake alert knows yr vff now 5 lue and all ext nl speech nad feels back to nl Assessment and Plan Assessment and Plan imp sz from old r cva mri neg any new cva eeg nl this am on fent adn running off it now cont iv vpa check level am also on keppra should do well neurowise and ok to get of vent concepcion eeg yest showed r sz focus 10/07/17 looks great neurowise had inc k+ inc bp and co2 retention acidotic now much better will see what vpa level is today and may inc dose and taper keppra off over next week fu eeg neg he could dc and needs neurofu [facility] and depakote level ast alt cbc and bmp drawn in 5 days after i adjust meds today Tyrone Hopkins MD Oct 07, 2017 08:13
[2017-10-07] MEDS ORDERED: HEPARIN SODIUM - SQ 10,000 UNITS/ML VIAL SQ SCH (09:00)
[2017-10-07] MEDS ORDERED: VALPROATE INJ 750 MG in SODIUM CHLORIDE 0.9% INJ 100 ML IV SCH (09:00)
[2017-10-07] MEDS ORDERED: VALPROIC ACID 250 MG CAP PO SCH ×2 (09:00→21:00)
[2017-10-07] MEDS: DOCUSATE SODIUM 50 MG/SENNA 8.6 MG TAB PO SCH (09:51)
[2017-10-07] MEDS: FAMOTIDINE 20 MG TAB PO SCH (09:51)
[2017-10-07] MEDS: SODIUM CHLORIDE 0.9% FLUSH 10 ML FLUSH IV FLUSH SCH (09:51)
[2017-10-07 11:40] LABS: ALT (GPT) 27 U/L (12-78); AST (GOT) 27 U/L (15-37)
[2017-10-07] MEDS ORDERED: LEVE250 PO (12:02)
[2017-10-07] MEDS ORDERED: VALP250C PO (12:02)
--- NOTE | 2017-10-07 12:03 | HHI.DS ---
Discharge Summary Admission Date Oct 03, 2017 at 12:38 pm Discharge Date: Oct 07, 2017 Admitting Diagnosis stroke alert/seizures/acute renal failure/hyperkalemia (1) Seizure ICD Code: R56.9 - Unspecified convulsions (2) Respiratory failure ICD Code: J96.90 - Respiratory failure, unspecified, unspecified whether with hypoxia or hypercapnia (3) End stage renal disease ICD Code: N18.6 - End stage renal disease Procedures EEG 10/05/2017 The EEG recording was done at two different times. Initially there was generalized background slowing while the patient was on fentanyl. Later on that afternoon was also generalized slowing but with movement artifacts. There were no electrographic seizures or epileptiform discharges the generalized slow rate may indicate an encephalopathy that may be related to medication effect, hypoxia or metabolic abnormality. Clinical correlation is recommended. EEG 10/04/2017 Right-sided right focus of ictal activity throughout the recording with mild background slowing, that may indicate an encephalopathy. Clinical correlation is recommended Brief History - From Admission This is a 82-year-old male , presented to the ED with altered mental status. Per report the patient was noted to have left-sided weakness, aphasia and disorientation and nausea and vomiting.Reported NIHSS scale 19 initially called as a stroke alert .The patient was evaluated by Dr. Hopkins and assessed ,the patient was notably having active seizures, not a stroke. The patient was giving a dose of Ativan secondary to active seizures ,EEG was in progress with noted seizure activity . Upon my arrival to ED, I observed the patient obtunded which required emergent intubation, which I performed . Laboratory and imaging studies were performed ,he was noted to have a potassium level of 6.9. I administered 2 g of calcium gluconate, 10 units regular insulin and D50, as well as 2 Amps of sodium bicarbonate. He was also noted to be significantly hypertensive, upon my arrival SBP 240's.IV antihypertensive medication initiated. Nephrology was consulted. The patient's medical history significant for ESRD approximately 2 years, and he received dialysis 2 times a week, last dialysis was Saturday09/30/17.The patient's medical history is also significant for hypertension, prostate cancer, and a history of renal carcinoma status post left nephrectomy and partial right nephrectomy. Critical care medicine was consulted for management. Modifying Factors: None Associated Signs & Symptoms: Stroke alert, left-sided weakness, difficulty speaking Risk Factors: Elderly, on dialysis History PFSH Social History Tobacco Use: No Allergies-Medications Allergies-Medications (Allergen,Severity, Reaction): Coded Allergies: No Known Allergies (Unverified , 10/03/17) ROS Review of Systems ROS Limitations: Altered Mental Status, Speech Impaired CBC/BMP: 10/06/17 0941 10/06/17 0941 Significant Findings Laboratory Tests Test 10/05/17 04:44 10/06/17 09:41 10/07/17 07:03 White Blood Count 12.1 TH/MM3 (4.0-11.0) Red Blood Count 3.63 MIL/MM3 (4.50-5.90) 3.54 MIL/MM3 (4.50-5.90) Hemoglobin 11.8 GM/DL (13.0-17.0) 11.9 GM/DL (13.0-17.0) Hematocrit 36.2 % (39.0-51.0) 34.7 % (39.0-51.0) Neutrophils (%) (Auto) 76.9 % (16.0-70.0) 74.2 % (16.0-70.0) Monocytes (%) (Auto) 12.5 % (0.0-8.0) 12.6 % (0.0-8.0) Neutrophils # (Auto) 9.3 TH/MM3 (1.8-7.7) Monocytes # (Auto) 1.5 TH/MM3 (0-0.9) 1.1 TH/MM3 (0-0.9) Blood Urea Nitrogen 71 MG/DL (7-18) 48 MG/DL (7-18) Creatinine 9.19 MG/DL (0.60-1.30) 7.32 MG/DL (0.60-1.30) Random Glucose 126 MG/DL (74-106) Phosphorus Level 6.6 MG/DL (2.5-4.9) Estimat Glomerular Filtration Rate 6 ML/MIN (>89) 7 ML/MIN (>89) Valproic Acid (Depakene) Level 30 MCG/ML (50-100) 29 MCG/ML (50-100) 39 MCG/ML (50-100) PE at Discharge GENERAL: AOX3, NAD. SKIN: Warm and dry. HEAD: Normocephalic. EYES: No scleral icterus. No injection or drainage. NECK: Supple, trachea midline. No JVD or lymphadenopathy. CARDIOVASCULAR: Regular rate and rhythm without murmurs, gallops, or rubs. RESPIRATORY: Breath sounds equal bilaterally. No accessory muscle use. GASTROINTESTINAL: Abdomen soft, non-tender, nondistended. MUSCULOSKELETAL: No cyanosis, or edema. BACK: Nontender without obvious deformity. No CVA tenderness. Pt update on day of discharge Patient is currently doing well. No acute concerns. Hospital Course This is a 82-year-old male , presented to the ED with altered mental status. Per report the patient was noted to have left-sided weakness, aphasia and disorientation and nausea and vomiting.Reported NIHSS scale 19 initially called as a stroke alert .The patient was evaluated by Dr. Hopkins and assessed ,the patient was notably having active seizures, not a stroke. The patient was giving a dose of Ativan secondary to active seizures ,EEG was in progress with noted seizure activity. Patient was found obtunded and was intubated. Patient was dialyzed by nephrology due to hyperkalemia, ESRD. He was extubated on 10/04/2017 and transferred to the floor on 10/05/2017. - New onset seizure disorder - 10/03 CT brain-chronic infarct right occipital lobe - 10/03 CTA head -no stenosis, no thrombus - 10/03 CTA neck-no stenosis no thrombus carotids patent - Continuous EEG-no current seizure activity, slowing secondary to fentanyl infusion - Received Valproate 750mg IV Q12hrs and Keppra 500mg IV QAM. - Discussed with Dr. Hopkins (Neurology) on the day of discharge. Neurology recommended increasing Valproic acid to 1000mg Q12hrs and gradually taper off Keppra. - End stage renal disease - Nephrology following. Patient was on dialysis twice a week. Currently on Sat, Yenny, Sat dialysis. - Electrolytes are Na 139, K+ 4.4, Cl 101, Mg 2.1 - Patient will continue dialysis upon returning home. - Acute respiratory failure - resolved. - 10/03-intubated for airway protection. Extubated - DuoNebs PRN. - Hypertension - BP in the 160s to 170s range systolic. - If it remains elevated, consider low dose Amlodipine for BP control. After discussing with Nephrology and Neurology, patient was discharged home. Pt Condition on Discharge: Good Discharge Disposition: Disch w/ Home Health Serv Discharge Time: > 30 minutes Discharge Instructions DIET: Follow Instructions for: Renal Failure Diet Speech Therapy-Diet Recommends: Soft Activities you can perform: Regular-No Restrictions Follow up Referrals: Appointment for Follow Up Neurology - 2 Weeks Neurology in [facility]. PCP Follow-up - 1 Week PCP in [facility]. PCP Follow-up New Medications: Levetiracetam (Keppra) 250 Mg Tab 250 MG PO BID for Control Seizures, #12 TAB 0 Refills Take Keppra 250mg BID X 3 days THEN Keppra 250mg Qday X 3 days then Keppra 250mg Qother day X 3 days THEN STOP. Valproic Acid (Valproic Acid) 250 Mg Cap 1000 MG PO BID for Seizure Control for 30 Days, #240 CAP 0 Refills Continued Medications: Amlodipine (Amlodipine) 5 Mg Tab 5 MG PO DAILY for Blood Pressure Management, #30 TAB [address] (Ecotrin Regular Strength) 325 Mg Tabdr 325 MG PO DAILY, #30 TAB 0 Refills Atorvastatin (Atorvastatin) 10 Mg Tab 10 MG PO HS for Cholesterol Management, #30 TAB 0 Refills Cholecalciferol (Dialyvite Vitamin D 5000) 5,000 Unit Cap 5000 UNITS PO DAILY for Nutritional Supplement, CAP 0 Refills Cinacalcet (Sensipar) 30 Mg Tab 30 MG PO 2XWEEK, #60 TAB 0 Refills Escitalopram (Lexapro) 10 Mg Tab 10 MG PO DAILY, #30 TAB 0 Refills Metoprolol Succinate ER 24 HR (Metoprolol Succinate ER 24 HR) 25 Mg Tab 25 MG PO DAILY, #30 TAB 0 Refills Sevelamer Carbonate (Renvela) 800 Mg Tab 800 MG PO TID for Control phosphorous levels, #90 TAB 0 Refills Dominic Schreiber DO Oct 07, 2017 12:03
[2017-10-08] MEDS ORDERED: levETIRAcetam 500 MG TAB PO SCH (06:00)
--- NOTE | 2017-10-09 08:45 | PQ ---
Physician Query Response Document PATIENT: BREANNA VERA : 1935 ADMIT DATE: 10/03/2017 12:38 PM DISCH DATE: 10/07/2017 1:52 PM RESPONDING PROVIDER #: mariia QUERY TEXT: Clarification of Clinical Diagnostic Findings Please clarify documentation or clinical relevance for the clinical / diagnostic findings or whether those are insignificant or unable to be further specified. WAS PATIENT'S SEIZURES DUE TO : 1)unknown etiology 2)new onset not related to prior CVA 3)seizures that are related(sequela) of previous CVA 4)other(PLEASE SPECIFY) The patient's Clinical Indicators include: Dr. Schreiber, patient was admitted with what was determined to be altered mental status due to Seizure a ctivity. Patient also has a past history of CVA. Neurology suggests this may be sequela of prior CVA. Please review the question below and answer to the best of your ability, to further specify seisures. Query created by: Guy Sanders on 10/08/2017 12:44 PM RESPONSE TEXT: Seizure due to unknown etiology. Patient has a history of remote ischemic stroke but no acute stroke that would cause seizure. Electronically signed by: Jacob Schreiber DO 10/09/2017 8:41 AM
== END 2017-10-07 13:52 | disposition home health service (06) | DRG 100 ==
LOC: NEPC 11:30 → NEDA 12:38 → HIMW 15:05 → N05B 10-05 20:09
PROVIDERS: ADMIT Hospitalist; ATTEND Hospitalist
PROC: 5A1935Z Respiratory Ventilation, Less than 24 Consecutive Hours (ICD-10-PCS; principal; 2017-10-03)
PROC: 0BH17EZ Insertion of Endotracheal Airway into Trachea, Via Natural or Artificial Opening (ICD-10-PCS; 2017-10-03)
PROC: 5A1D70Z Performance of Urinary Filtration, Intermittent, Less than 6 Hours Per Day (ICD-10-PCS; 2017-10-05)
DX: R56.9 Unspecified convulsions (principal); N18.6 End stage renal disease; J96.01 Acute respiratory failure with hypoxia; G93.41 Metabolic encephalopathy; E87.2 Acidosis; I12.0 Hypertensive chronic kidney disease with stage 5 chronic kidney disease or end stage renal disease; R47.01 Aphasia; I16.9 Hypertensive crisis, unspecified; R00.1 Bradycardia, unspecified; E87.5 Hyperkalemia; Z99.2 Dependence on renal dialysis; R11.2 Nausea with vomiting, unspecified; Z85.46 Personal history of malignant neoplasm of prostate; Z85.528 Personal history of other malignant neoplasm of kidney; Z90.5 Acquired absence of kidney; R73.9 Hyperglycemia, unspecified; H55.00 Unspecified nystagmus; D64.9 Anemia, unspecified; H91.90 Unspecified hearing loss, unspecified ear; Z86.73 Personal history of transient ischemic attack (TIA), and cerebral infarction without residual deficits; R53.1 Weakness
CPT/HCPCS: 31500; 36600; 70450; 70496; 70498; 70551; 71010; 80048; 80053; 80164; 80307; 81001; 82140; 82435; 82550; 82565; 82607; 82805; 82947; 83735; 84100; 84132; 84295; 84425; 84439; 84443; 84450; 84460; 84484; 84520; 85025; 85384; 85610; 85730; 86850; 86900; 86901; 87070; 87205; 87449; 87641; 90935; 93005; 94002; 94003; 94150; 94640; 94664; 95819; 96365; 96374; 96375; J0360; J0610; J1644; J1815; J1953; J2060; J2405; J3010; J7030; Q4081